=== PATIENT | female | born 1965 | race Caucasian/White ===

== ENCOUNTER 2017-08-09 10:12 | Inpatient (IN) | payer MEDICAID ==
[2017-08-09] MEDS ORDERED: Ketorolac 30 MG/ML SDV IM ONE (10:22)
--- NOTE | 2017-08-09 10:27 | EDM.PDOC ---
ED HPI GENERAL MEDICAL PROBLEM - General Chief Complaint: Lower Extremity Injury/Pain Stated Complaint: LEG PAIN Time Seen by Provider: 08/09/17 10:15 Source of Information: Reports: Patient History Limitations: Reports: No Limitations - History of Present Illness INITIAL COMMENTS - FREE TEXT/NARRATIVE: Corrina Moya is a 51 yr old w female recently located to [place] from [place] who has a PMH of chronic R hip pain. Pain seems to have escalated in the past 2 days. Pain seems worse this am, with ambulation and weight bearing. She arrrived at [facility] ED by cab. She takes Ibuprofen for pain management. Breath smelled of ETOH, and she did admit to consumption of 1 beer earlier this am. She has established at [facility], and has been receiving evaluation of her cardiac and pulmonary status. She has a daughter and grandchildren in the [place] area. - Related Data Allergies Allergy/AdvReac Type Severity Reaction Status Date / Time codeine Allergy Burning Verified 08/09/17 10:47 Home Meds: Home Meds . [Unable to Verify Home Med List] 04/24/17 [History] Past Medical History Cardiovascular History: Reports: CAD, High Cholesterol, Hypertension, PVD, Stents (R fem-pop) Respiratory History: Reports: Asthma, COPD Gastrointestinal History: Reports: Other (See Below) (? adhesions) Genitourinary History: Reports: None Musculoskeletal History: Reports: Other (See Below) (DJD R hip) Psychiatric History: Reports: Anxiety, Depression, Emotional Problems Endocrine/Metabolic History: Reports: None - Past Surgical History Cardiovascular Surgical History: Reports: Vascular Surgery Social & Family History - Tobacco Use Smoking Status *Q: Current Every Day Smoker Years of Tobacco use: 30 Packs/Tins Daily: 0.2 - Recreational Drug Use Recreational Drug Use: No Review of Systems - Review of Systems Review Of Systems: See Below Constitutional: Reports: No Symptoms Eyes: Reports: No Symptoms Ears: Reports: No Symptoms Nose: Reports: No Symptoms Mouth/Throat: Reports: No Symptoms Respiratory: Reports: Shortness of Breath, Cough Cardiovascular: Reports: No Symptoms GI/Abdominal: Reports: No Symptoms Genitourinary: Reports: No Symptoms Musculoskeletal: Reports: Joint Pain (R hip) Skin: Reports: Bruising Neurological: Reports: Dizziness, Difficulty Walking, Weakness Psychiatric: Reports: Depression, Mood Lability, Anxiety ED EXAM, GENERAL - Physical Exam Exam: See Below Exam Limited By: No Limitations General Appearance: Alert, WD/WN, Anxious, Mild Distress Eye Exam: Bilateral Eye: EOMI, Normal Inspection, PERRL Ears: Normal External Exam Nose: Normal Inspection Throat/Mouth: Normal Lips, Normal Oropharynx, Normal Voice Head: Normocephalic Neck: Normal Inspection, Supple, Non-Tender Respiratory/Chest: Decreased Breath Sounds, Prolonged Expiration Cardiovascular: Regular Rate, Rhythm, No Edema, No Murmur GI/Abdominal: Normal Bowel Sounds, Soft, Non-Tender, No Organomegaly, No Distention, No Mass (Female) Exam: Deferred Rectal (Female) Exam: Deferred Back Exam: Normal Inspection Extremities: Normal Inspection, Limited Range of Motion (R hip) Neurological: Alert, Oriented, CN II-XII Intact, No Motor/Sensory Deficits Psychiatric: Normal Affect, Anxious Skin Exam: Warm, Dry, Intact Lymphatic: No Adenopathy Course - Vital Signs Text/Narrative:: Dr Eisenberg will consult with Ms Moya regarding R hip issues. She will be admitted for pain management, hyponatremia, ETOH detoxification, and receive consults for OT and PT. Hospitalist was notified. - Orders/Labs/Meds Orders: Active Orders 24 hr Category Date Time Status UA W/MICROSCOPIC [URIN] Stat Lab 08/09/17 10:47 Ordered Labs: Laboratory Tests 08/09/17 08/09/17 08/09/17 Range/Units 10:47 11:10 11:10 WBC 7.7 (4.5-12.0) X10-3/uL RBC 3.49 (3.23-5.20) x10(6)uL Hgb 12.5 (11.5-15.5) g/dL Hct 35.0 (30.0-51.3) % MCV 100.4 H (80-96) fL MCH 35.7 H (27.7-33.6) pg MCHC 35.6 H (32.2-35.4) g/dL RDW 12.1 (11.5-15.5) % Plt Count 341 (125-369) X10(3)uL MPV 8.1 (7.4-10.4) fL Neut % (Auto) 66.3 (46-82) % Lymph % (Auto) 22.5 (13-37) % [place] % (Auto) 8.2 (4-12) % Eos % (Auto) 3 (1.0-5.0) % Baso % (Auto) 1 (0-2) % Neut # (Auto) 5.2 (1.6-8.3) # Lymph # (Auto) 1.7 (0.6-5.0) # [place] # (Auto) 0.6 (0.0-1.3) # Eos # (Auto) 0.2 (0.0-0.8) # Baso # (Auto) 0.0 (0.0-0.2) # PT 10.2 (8.7-11.1) INR 1.01 (0.89-1.13) Sodium (135-145) mmol/L Potassium (3.5-5.3) mmol/L Chloride (100-110) mmol/L Carbon Dioxide (21-32) mmol/L BUN (7-18) mg/dL Creatinine (0.55-1.02) mg/dL Est Cr Clr Drug Dosing Estimated GFR (MDRD) (>60) BUN/Creatinine Ratio (9-20) Glucose (80-116) mg/dL Calcium (8.6-10.2) mg/dL Total Bilirubin (0.1-1.3) mg/dL AST (5-25) IU/L ALT (12-36) U/L Alkaline Phosphatase (56-112) IU/L Total Protein (6.0-8.0) g/dL Albumin (3.5-5.2) g/dL Globulin g/dL Albumin/Globulin Ratio Urine Color Yellow (YELLOW) Urine Appearance Slightly cloudy (CLEAR) Urine pH 5.0 (5.0-6.5) Ur Specific [place] 1.010 (1.010-1.025) Urine Protein Negative (NEGATIVE) mg/dL Urine Glucose (UA) Normal (NEGATIVE) mg/dL Urine Ketones Negative (NEGATIVE) mg/dL Urine Occult Blood Negative (NEGATIVE) Urine Nitrite Negative (NEGATIVE) Urine Bilirubin Negative (NEGATIVE) Urine Urobilinogen Normal (NEGATIVE) mg/dL Ur Leukocyte Esterase Negative (NEGATIVE) Urine WBC 5-10 (0) Ur Squamous Epith Cells Few H (NS,R,O) Urine Bacteria Many H (NS) Ethyl Alcohol (<0.03) % 08/09/17 08/09/17 Range/Units 11:10 11:10 WBC (4.5-12.0) X10-3/uL RBC (3.23-5.20) x10(6)uL Hgb (11.5-15.5) g/dL Hct (30.0-51.3) % MCV (80-96) fL MCH (27.7-33.6) pg MCHC (32.2-35.4) g/dL RDW (11.5-15.5) % Plt Count (125-369) X10(3)uL MPV (7.4-10.4) fL Neut % (Auto) (46-82) % Lymph % (Auto) (13-37) % [place] % (Auto) (4-12) % Eos % (Auto) (1.0-5.0) % Baso % (Auto) (0-2) % Neut # (Auto) (1.6-8.3) # Lymph # (Auto) (0.6-5.0) # [place] # (Auto) (0.0-1.3) # Eos # (Auto) (0.0-0.8) # Baso # (Auto) (0.0-0.2) # PT (8.7-11.1) INR (0.89-1.13) Sodium 129 L (135-145) mmol/L Potassium 3.7 (3.5-5.3) mmol/L Chloride 94 L (100-110) mmol/L Carbon Dioxide 23 (21-32) mmol/L BUN 14 (7-18) mg/dL Creatinine 0.8 (0.55-1.02) mg/dL Est Cr Clr Drug Dosing TNP Estimated GFR (MDRD) > 60 (>60) BUN/Creatinine Ratio 17.5 (9-20) Glucose 95 (80-116) mg/dL Calcium 8.9 (8.6-10.2) mg/dL Total Bilirubin 0.3 (0.1-1.3) mg/dL AST 25 (5-25) IU/L ALT 26 (12-36) U/L Alkaline Phosphatase 89 (56-112) IU/L Total Protein 7.6 (6.0-8.0) g/dL Albumin 3.6 (3.5-5.2) g/dL Globulin 4.0 g/dL Albumin/Globulin Ratio 0.9 Urine Color (YELLOW) Urine Appearance (CLEAR) Urine pH (5.0-6.5) Ur Specific [place] (1.010-1.025) Urine Protein (NEGATIVE) mg/dL Urine Glucose (UA) (NEGATIVE) mg/dL Urine Ketones (NEGATIVE) mg/dL Urine Occult Blood (NEGATIVE) Urine Nitrite (NEGATIVE) Urine Bilirubin (NEGATIVE) Urine Urobilinogen (NEGATIVE) mg/dL Ur Leukocyte Esterase (NEGATIVE) Urine WBC (0) Ur Squamous Epith Cells (NS,R,O) Urine Bacteria (NS) Ethyl Alcohol 0.10 H (<0.03) % Meds: Medications Discontinued Medications Generic Name Dose Route Start Last Admin Trade Name Freq PRN Reason Stop Dose Admin Ketorolac Tromethamine 30 mg 08/09/17 10:22 08/09/17 10:34 Toradol IM 08/09/17 10:23 30 mg ONETIME ONE Administration Departure - Departure Time of Disposition: 12:15 Disposition: Admitted As Inpatient 66 Condition: Poor Clinical Impression: Hyponatremia Painful hip Qualifiers: Laterality: right Qualified Code(s): M25.551 - Pain in right hip Alcoholic intoxication, chronic Qualifiers: Complication of substance-induced condition: uncomplicated Qualified Code(s): F10.120 - Alcohol abuse with intoxication, uncomplicated - Discharge Information Referrals: Shahida Davila OB NURSE [Primary Care Provider] - Forms: ED Department Discharge - Problem List & Annotations (1) Painful hip SNOMED Code(s): 69583316 Code(s): M25.559 - PAIN IN UNSPECIFIED HIP Status: Acute Current Visit: Yes Annotation/Comment:: Dr Eisenberg to consult regarding R hip pain and advanced DJD Qualifiers: Laterality: right Qualified Code(s): M25.551 - Pain in right hip (2) Alcoholic intoxication, chronic SNOMED Code(s): 311626735, 229060765 Code(s): F10.129 - ALCOHOL ABUSE WITH INTOXICATION, UNSPECIFIED Status: Acute Current Visit: Yes Annotation/Comment:: ETOH detoxification and monitor for Withdrawl Qualifiers: Complication of substance-induced condition: uncomplicated Qualified Code(s ): F10.120 - Alcohol abuse with intoxication, uncomplicated (3) Hyponatremia SNOMED Code(s): 09930104 Code(s): E87.1 - HYPO-OSMOLALITY AND HYPONATREMIA Status: Acute Current Visit: Yes Annotation/Comment:: Dietary replacement. - Problem List Review Problem List Initiated/Reviewed/Updated: Yes - My Orders Last 24 Hours: My Active Orders 08/09/17 10:47 UA W/MICROSCOPIC [URIN] Stat - Assessment/Plan Last 24 Hours: My Active Orders 08/09/17 10:47 UA W/MICROSCOPIC [URIN] Stat Plan: Admit to InPt, discussed with Hospitalist.
--- NOTE | 2017-08-09 11:35 | CR ---
INDICATION: Painful right hip. PELVIS WITH RIGHT HIP: Frontal view of the pelvis with lateral of the right hip was obtained 08/09/[address] scan which included the pelvis from 07/24/2017, again revealing evidence of severe osteoarthritis with virtually no remaining joint space at the cranial aspect of the right hip joint. Flattening of the femoral head is noted. Hypertrophic changes, sclerosis, and subchondral cystic changes are seen at the right hip joint. There are also degenerative changes of hypertrophic lipping and marked narrowing of the cranial lateral joint space on the left. Disease is moderately less severe than on the right, however. Overall bone density appeared to be normal. An iliac artery stent is noted in place on the right. IMPRESSION: Severe osteoarthritis both hip joints, much more severe on the right than left, however, with more severe deformity and subchondral cystic change on the right. MTDD
--- NOTE | 2017-08-09 11:40 | CR ---
INDICATION: Suspected COPD. CHEST: An AP upright view of the chest, 08/09/2017, was compared with 2016, again revealing the heart to be enlarged. The aorta is tortuous with minimal calcification suggested in the arch. The lungs appear to be somewhat hyperaerated. A definite active infiltrate or effusion was not identified. Dextroconcave scoliosis and degenerative changes are noted in the lower middle thoracic spine. IMPRESSION: 1. No definite acute process. 2. ASHD with cardiomegaly. 3. Scoliosis with DJD spine. 4. Cannot exclude COPD - correlate clinically. MTDD
[2017-08-09] MEDS ORDERED: Acetaminophen/HYDROcodone 325-5 MG Tab PO ONE (13:28)
[2017-08-09] MEDS ORDERED: Nicotine 14 MG/24 Hr Patch TRDERM SCH (18:15)
[2017-08-09] MEDS ORDERED: Acetaminophen/HYDROcodone 325-5 MG Tab PO PRN (18:17)
[2017-08-09] MEDS ORDERED: Ondansetron 4 MG Tab.DIS PO PRN (18:17)
[2017-08-09] MEDS ORDERED: ClonazePAM 0.5 MG Tab PO PRN (18:28)
[2017-08-09] MEDS ORDERED: Albuterol/Ipratropium 3.0-0.5 MG/3 ML Neb Soln INH PRN (18:28)
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
[2017-08-09] MEDS ORDERED: Albuterol 8 GM Inhaler INH PRN (18:54)
[2017-08-09] MEDS: Clopidogrel 75 MG Tab PO SCH (19:07)
[2017-08-09] MEDS: Docusate Sodium 100 MG Cap PO SCH ×2 (19:07→21:33)
[2017-08-09] MEDS: amLODIPine 5 MG Tab PO SCH (19:07)
[2017-08-09] MEDS: Enoxaparin 40 MG/0.4 ML Syringe SUBCUT SCH (19:07)
[2017-08-09] MEDS: Isosorbide Mononitrate 30 MG Tab.ER PO SCH (19:07)
[2017-08-09] MEDS: Acetaminophen/HYDROcodone 325-5 MG Tab PO SCH (19:07)
[2017-08-09] MEDS: Metoprolol Tartrate 50 MG Tab PO SCH (21:33)
[2017-08-09] MEDS: Zolpidem 5 MG Tab PO SCH (21:33)
[2017-08-09] MEDS: FLUTICASONE SALMETEROL IH SCH (21:34)
[2017-08-09] MEDS: Gabapentin 300 MG Cap PO SCH (21:34)
[2017-08-09] MEDS: DULoxetine 20 MG Cap PO SCH (21:56)
[2017-08-10] MEDS: Acetaminophen/HYDROcodone 325-5 MG Tab PO SCH ×4 (00:49→17:26)
[2017-08-10] MEDS: FLUTICASONE SALMETEROL IH SCH ×2 (06:40→20:28)
[2017-08-10] MEDS: Docusate Sodium 100 MG Cap PO SCH ×2 (08:22→20:27)
[2017-08-10] MEDS: DULoxetine 20 MG Cap PO SCH ×2 (08:22→20:27)
[2017-08-10] MEDS: Clopidogrel 75 MG Tab PO SCH (08:23)
[2017-08-10] MEDS: Gabapentin 300 MG Cap PO SCH ×3 (08:24→20:27)
[2017-08-10] MEDS: amLODIPine 5 MG Tab PO SCH (08:24)
[2017-08-10] MEDS: Isosorbide Mononitrate 30 MG Tab.ER PO SCH (08:25)
[2017-08-10] MEDS: Hydrochlorothiazide/Lisinopril 25-20 MG Tab PO SCH (08:25)
[2017-08-10] MEDS: atorvaSTATin 40 MG Tab PO SCH (08:25)
[2017-08-10] MEDS: Magnesium Oxide 400 MG Tab PO SCH (08:26)
[2017-08-10] MEDS: Metoprolol Tartrate 50 MG Tab PO SCH ×2 (08:26→20:27)
[2017-08-10] MEDS: Ciprofloxacin 500 MG Tab PO SCH ×2 (12:58→20:27)
[2017-08-10] MEDS: Nicotine 14 MG/24 Hr Patch TRDERM SCH (17:27)
[2017-08-10] MEDS: Enoxaparin 40 MG/0.4 ML Syringe SUBCUT SCH (17:27)
[2017-08-10] MEDS: Zolpidem 5 MG Tab PO SCH (20:27)
[2017-08-11] MEDS: Acetaminophen/HYDROcodone 325-5 MG Tab PO SCH ×4 (00:13→17:52)
[2017-08-11] MEDS: FLUTICASONE SALMETEROL IH SCH ×2 (07:03→20:32)
[2017-08-11] MEDS: Metoprolol Tartrate 50 MG Tab PO SCH ×2 (08:09→20:31)
[2017-08-11] MEDS: Clopidogrel 75 MG Tab PO SCH (08:09)
[2017-08-11] MEDS: Ciprofloxacin 500 MG Tab PO SCH ×2 (08:09→20:30)
[2017-08-11] MEDS: Docusate Sodium 100 MG Cap PO SCH ×2 (08:10→20:31)
[2017-08-11] MEDS: DULoxetine 20 MG Cap PO SCH ×2 (08:10→20:31)
[2017-08-11] MEDS: amLODIPine 5 MG Tab PO SCH (08:10)
[2017-08-11] MEDS: Isosorbide Mononitrate 30 MG Tab.ER PO SCH (08:10)
[2017-08-11] MEDS: atorvaSTATin 40 MG Tab PO SCH (08:10)
[2017-08-11] MEDS: Gabapentin 300 MG Cap PO SCH ×3 (08:10→20:31)
[2017-08-11] MEDS: Magnesium Oxide 400 MG Tab PO SCH (08:10)
[2017-08-11] MEDS: Hydrochlorothiazide/Lisinopril 25-20 MG Tab PO SCH (08:10)
--- NOTE | 2017-08-11 09:04 | PCM.PN ---
- General Info Date of Service: 08/10/17 Subjective Update: pain under improved control. no bm since admission. started on stool softener on admission. doing much better with ambulation now that pain is under better control. tolerating cipro. ID ecoli susceptible to cipro. nursing without concerns. has remained afebrile. no n/v or headache. no chest pain shortness of breath wheezing abdominal pain and flank pain diaphoresis peripheral numbness or tingling swelling or pain in the calves. Functional Status: Reports: Tolerating Diet, Ambulating, Urinating. Denies: New Symptoms - Patient Data Vitals - Most Recent: Last Vital Signs Temp 97.7 F 08/11/17 08:00 Pulse 68 08/11/17 08:09 Resp 17 08/11/17 08:00 BP 125/87 08/11/17 08:10 Pulse Ox 96 08/11/17 08:00 Weight - Most Recent: 66.497 kg I&O - Last 24 Hours: Intake & Output 08/10/17 08/11/17 08/11/17 22:59 06:59 14:59 Intake Total 300 Balance 300 [place] Results Last 24 Hours: Microbiology 08/09/17 10:47 Urine Culture - Final Urine, Bladder Escherichia Coli Med Orders - Current: Current Medications Hydrocodone Bitart/Acetaminophen ([place] 325-5 Mg) 1 tab PO Q6H [facility] Last Admin: 08/11/17 07:02 Dose: 1 tab Hydrocodone Bitart/Acetaminophen ([place] 325-5 Mg) 1 tab PO Q4H PRN PRN Reason: Pain (moderate 4-6) Last Admin: 08/09/17 21:42 Dose: 1 tab Albuterol (Ventolin Hfa) 0 gm INH Q4H PRN PRN Reason: Shortness of Breath Albuterol/Ipratropium (Duoneb 3.0-0.5 Mg/3 Ml) 3 ml INH QID PRN PRN Reason: wheezing/sob Last Admin: 08/10/17 17:20 Dose: 3 ml Amlodipine Besylate (Norvasc) 5 mg PO DAILY [facility] Last Admin: 08/11/17 08:10 Dose: 5 mg Atorvastatin Calcium (Lipitor) 80 mg PO DAILY [facility] Last Admin: 08/11/17 08:10 Dose: 80 mg Ciprofloxacin (Ciprofloxacin Hcl) 500 mg PO BID@0800,1999 [facility] Last Admin: 08/11/17 08:09 Dose: 500 mg Clonazepam (Klonopin) 0.25 mg PO BID PRN PRN Reason: Anxiety Clopidogrel Bisulfate (Plavix) 75 mg PO DAILY [facility] Last Admin: 08/11/17 08:09 Dose: 75 mg Docusate Sodium (Colace) 100 mg PO BID [facility] Last Admin: 08/11/17 08:10 Dose: 100 mg Duloxetine HCl (Cymbalta) 20 mg PO BID [facility] Last Admin: 08/11/17 08:10 Dose: 20 mg Gabapentin (Neurontin) 300 mg PO TID [facility] Last Admin: 08/11/17 08:10 Dose: 300 mg Lisinopril/HCTZ (Lisinopril-Hctz 20-25 Mg) 1 tab PO DAILY [facility] Last Admin: 08/11/17 08:10 Dose: 1 tab Heparin Sodium (Porcine) (Heparin Sodium) 5,000 units SUBCUT Q8H [facility] Isosorbide Mononitrate (Imdur) 30 mg PO DAILY [facility] Last Admin: 08/11/17 08:10 Dose: 30 mg Levothyroxine Sodium (Levothyroxine) 175 mcg PO ACBREAKFAST [facility] Last Admin: 08/11/17 07:03 Dose: 175 mcg Magnesium Oxide (Magnesium Oxide) 400 mg PO DAILY [facility] Last Admin: 08/11/17 08:10 Dose: 400 mg Medroxyprogesterone Acetate (Provera) 2.5 mg PO DAILY [facility] Last Admin: 08/11/17 08:10 Dose: 2.5 mg Meloxicam (Mobic) 15 mg PO DAILY [facility] Last Admin: 08/11/17 08:10 Dose: 15 mg Metoprolol Tartrate (Lopressor) 50 mg PO BID [facility] Last Admin: 08/11/17 08:09 Dose: 50 mg Nicotine (Habitrol) 14 mg TRDERM DAILY@1800 [facility] Last Admin: 08/10/17 17:27 Dose: 14 mg Non-Formulary Medication (Cholecalciferol (Vitamin D3) [Vitamin D3]) 400 unit PO DAILY [facility] Fluticasone- Salmeterol 232-14 Mcg InhalerOwn Med 1 puff IH BIDRT [facility] Last Admin: 08/11/17 07:03 Dose: 1 puff Ondansetron HCl (Zofran Odt) 4 mg PO Q6H PRN PRN Reason: nausea, able to take PO Zolpidem Tartrate (Ambien) 5 mg PO BEDTIME [facility] Last Admin: 08/10/17 20:27 Dose: 5 mg Discontinued Medications Hydrocodone Bitart/Acetaminophen ([place] 325-5 Mg) 1 tab PO ONETIME ONE Stop: 08/09/17 13:29 Last Admin: 08/09/17 13:36 Dose: 1 tab Enoxaparin Sodium (Lovenox) 40 mg SUBCUT Q24H [facility] Last Admin: 08/10/17 17:27 Dose: 40 mg Ketorolac Tromethamine (Toradol) 30 mg IM ONETIME ONE Stop: 08/09/17 10:23 Last Admin: 08/09/17 10:34 Dose: 30 mg Nicotine (Habitrol) 14 mg TRDERM DAILY [facility] Last Admin: 08/09/17 19:43 Dose: 14 mg - Exam Physical Findings Comments:: General: Alert, Oriented, Cooperative Lungs: Normal Respiratory Effort, improved aeration to bilateral bases Cardiovascular: Regular Rate, Regular Rhythm GI/Abdominal Exam: Normal Bowel Sounds Back Exam: No: CVA Tenderness (R), CVA Tenderness (L) Extremities: Other (pain on ROM of the right hip. tolerating exam but guarded) Skin: Intact, Ecchymosis (scattered, chronically on plavix. ) Neurological: No New Focal Deficit Psy/Mental Status: Normal Affect, Normal Mood. No: Withdrawal Symptoms - Problem List & Annotations (1) Painful hip SNOMED Code(s): 53319227 Code(s): M25.559 - PAIN IN UNSPECIFIED HIP Status: Acute Qualifiers: Laterality: right Qualified Code(s): M25.551 - Pain in right hip (2) Arthritis of right hip SNOMED Code(s): 35771871 Code(s): M16.11 - UNILATERAL PRIMARY OSTEOARTHRITIS, RIGHT HIP Status: Chronic (3) Pain management SNOMED Code(s): 809972838 Code(s): R52 - PAIN, UNSPECIFIED Status: Acute - Problem List Review Problem List Initiated/Reviewed/Updated: Yes - My Orders Last 24 Hours: My Active Orders 08/10/17 09:00 Cholecalciferol (Vitamin D3) [Vitamin D3] 400 unit PO DAILY Hydrochlorothiazide/Lisinopril [Lisinopril-HCTZ 20-25 MG] 1 tab PO DAILY Magnesium Oxide 400 mg PO DAILY Meloxicam [Mobic] 15 mg PO DAILY atorvaSTATin [Lipitor] 80 mg PO DAILY medroxyPROGESTERone [Provera] 2.5 mg PO DAILY 08/10/17 11:30 Ciprofloxacin [Ciprofloxacin HCl] 500 mg PO BID@0800,2000 08/10/17 18:00 Nicotine [Habitrol] 14 mg TRDERM DAILY@1800 08/11/17 08:55 INR,PT,PROTHROMBIN TIME [COAG] Routine PTT,PARTIAL THROMBOPLSTIN TIME [COAG] Routine 08/11/17 08:56 CBC W/O DIFF,HEMOGRAM [HEME] Routine 08/11/17 09:00 Heparin Sodium 5,000 units SUBCUT Q8H - Plan Plan:: Attending current cares. Anticipate discharge within 4 hours on oral pain management, oral antibiotics and follow-up with orthopedic.
--- NOTE | 2017-08-11 09:04 | PCM.PN ---
- General Info Date of Service: 08/11/17 Subjective Update: slept well for the first time in over a week. continues to have aching and pain on ROM to the right hip but feels it is getting under better control. is up with nursing to the bathroom using her wheeled walker, no lightheadedness or dizziness on standing. nursing without concerns for withdrawl s/s. has been very pleasant and cooperative with exams and monitoring. Functional Status: Reports: Tolerating Diet, Ambulating, Urinating - Review of Systems Systems Review Comment:: per hpi - Patient Data Vitals - Most Recent: Last Vital Signs Temp 97.7 F 08/11/17 08:00 Pulse 68 08/11/17 08:09 Resp 17 08/11/17 08:00 BP 125/87 08/11/17 08:10 Pulse Ox 96 08/11/17 08:00 Weight - Most Recent: 66.497 kg I&O - Last 24 Hours: Intake & Output 08/10/17 08/11/17 08/11/17 22:59 06:59 14:59 Intake Total 300 Balance 300 [place] Results Last 24 Hours: Microbiology 08/09/17 10:47 Urine Culture - Final Urine, Bladder Escherichia Coli Med Orders - Current: Current Medications Hydrocodone Bitart/Acetaminophen ([place] 325-5 Mg) 1 tab PO Q6H [facility] Last Admin: 08/11/17 07:02 Dose: 1 tab Hydrocodone Bitart/Acetaminophen ([place] 325-5 Mg) 1 tab PO Q4H PRN PRN Reason: Pain (moderate 4-6) Last Admin: 08/09/17 21:42 Dose: 1 tab Albuterol (Ventolin Hfa) 0 gm INH Q4H PRN PRN Reason: Shortness of Breath Albuterol/Ipratropium (Duoneb 3.0-0.5 Mg/3 Ml) 3 ml INH QID PRN PRN Reason: wheezing/sob Last Admin: 08/10/17 17:20 Dose: 3 ml Amlodipine Besylate (Norvasc) 5 mg PO DAILY [facility] Last Admin: 08/11/17 08:10 Dose: 5 mg Atorvastatin Calcium (Lipitor) 80 mg PO DAILY [facility] Last Admin: 08/11/17 08:10 Dose: 80 mg Ciprofloxacin (Ciprofloxacin Hcl) 500 mg PO BID@0800,1999 [facility] Last Admin: 08/11/17 08:09 Dose: 500 mg Clonazepam (Klonopin) 0.25 mg PO BID PRN PRN Reason: Anxiety Clopidogrel Bisulfate (Plavix) 75 mg PO DAILY [facility] Last Admin: 08/11/17 08:09 Dose: 75 mg Docusate Sodium (Colace) 100 mg PO BID [facility] Last Admin: 08/11/17 08:10 Dose: 100 mg Duloxetine HCl (Cymbalta) 20 mg PO BID [facility] Last Admin: 08/11/17 08:10 Dose: 20 mg Gabapentin (Neurontin) 300 mg PO TID [facility] Last Admin: 08/11/17 08:10 Dose: 300 mg Lisinopril/HCTZ (Lisinopril-Hctz 20-25 Mg) 1 tab PO DAILY [facility] Last Admin: 08/11/17 08:10 Dose: 1 tab Heparin Sodium (Porcine) (Heparin Sodium) 5,000 units SUBCUT Q8H [facility] Isosorbide Mononitrate (Imdur) 30 mg PO DAILY [facility] Last Admin: 08/11/17 08:10 Dose: 30 mg Levothyroxine Sodium (Levothyroxine) 175 mcg PO ACBREAKFAST [facility] Last Admin: 08/11/17 07:03 Dose: 175 mcg Magnesium Oxide (Magnesium Oxide) 400 mg PO DAILY [facility] Last Admin: 08/11/17 08:10 Dose: 400 mg Medroxyprogesterone Acetate (Provera) 2.5 mg PO DAILY [facility] Last Admin: 08/11/17 08:10 Dose: 2.5 mg Meloxicam (Mobic) 15 mg PO DAILY [facility] Last Admin: 08/11/17 08:10 Dose: 15 mg Metoprolol Tartrate (Lopressor) 50 mg PO BID [facility] Last Admin: 08/11/17 08:09 Dose: 50 mg Nicotine (Habitrol) 14 mg TRDERM DAILY@1800 [facility] Last Admin: 08/10/17 17:27 Dose: 14 mg Non-Formulary Medication (Cholecalciferol (Vitamin D3) [Vitamin D3]) 400 unit PO DAILY [facility] Fluticasone- Salmeterol 232-14 Mcg InhalerOwn Med 1 puff IH BIDRT [facility] Last Admin: 08/11/17 07:03 Dose: 1 puff Ondansetron HCl (Zofran Odt) 4 mg PO Q6H PRN PRN Reason: nausea, able to take PO Zolpidem Tartrate (Ambien) 5 mg PO BEDTIME [facility] Last Admin: 08/10/17 20:27 Dose: 5 mg Discontinued Medications Hydrocodone Bitart/Acetaminophen ([place] 325-5 Mg) 1 tab PO ONETIME ONE Stop: 08/09/17 13:29 Last Admin: 08/09/17 13:36 Dose: 1 tab Enoxaparin Sodium (Lovenox) 40 mg SUBCUT Q24H [facility] Last Admin: 08/10/17 17:27 Dose: 40 mg Ketorolac Tromethamine (Toradol) 30 mg IM ONETIME ONE Stop: 08/09/17 10:23 Last Admin: 08/09/17 10:34 Dose: 30 mg Nicotine (Habitrol) 14 mg TRDERM DAILY [facility] Last Admin: 08/09/17 19:43 Dose: 14 mg - Exam General: Alert, Oriented, Cooperative Lungs: Normal Respiratory Effort, Decreased Breath Sounds Cardiovascular: Regular Rate, Regular Rhythm GI/Abdominal Exam: Normal Bowel Sounds Back Exam: No: CVA Tenderness (R), CVA Tenderness (L) Extremities: Other (pain on ROM of the right hip. tolerating exam a bit better. only needed one extra dose of pain medication. ) Skin: Intact, Ecchymosis (scattered, chronically on plavix. ) Neurological: No New Focal Deficit Psy/Mental Status: Normal Affect, Normal Mood. No: Withdrawal Symptoms - Problem List & Annotations (1) Painful hip SNOMED Code(s): 24457076 Code(s): M25.559 - PAIN IN UNSPECIFIED HIP Status: Acute Qualifiers: Laterality: right Qualified Code(s): M25.551 - Pain in right hip (2) Arthritis of right hip SNOMED Code(s): 80671271 Code(s): M16.11 - UNILATERAL PRIMARY OSTEOARTHRITIS, RIGHT HIP Status: Chronic (3) Cystitis SNOMED Code(s): 08433811 Code(s): N30.90 - CYSTITIS, UNSPECIFIED WITHOUT HEMATURIA Status: Acute (4) Pain management SNOMED Code(s): 275556308 Code(s): R52 - PAIN, UNSPECIFIED Status: Acute (5) Hyponatremia SNOMED Code(s): 70732166 Code(s): E87.1 - HYPO-OSMOLALITY AND HYPONATREMIA Status: Resolved Annotation/Comment:: Dietary replacement. - Problem List Review Problem List Initiated/Reviewed/Updated: Yes - My Orders Last 24 Hours: My Active Orders 08/10/17 09:00 Cholecalciferol (Vitamin D3) [Vitamin D3] 400 unit PO DAILY Hydrochlorothiazide/Lisinopril [Lisinopril-HCTZ 20-25 MG] 1 tab PO DAILY Magnesium Oxide 400 mg PO DAILY Meloxicam [Mobic] 15 mg PO DAILY atorvaSTATin [Lipitor] 80 mg PO DAILY medroxyPROGESTERone [Provera] 2.5 mg PO DAILY 08/10/17 11:30 Ciprofloxacin [Ciprofloxacin HCl] 500 mg PO BID@0800,199908/10/17 18:00 Nicotine [Habitrol] 14 mg TRDERM DAILY@1800 08/11/17 08:55 INR,PT,PROTHROMBIN TIME [COAG] Routine PTT,PARTIAL THROMBOPLSTIN TIME [COAG] Routine 08/11/17 08:56 CBC W/O DIFF,HEMOGRAM [HEME] Routine 08/11/17 09:00 Heparin Sodium 5,000 units SUBCUT Q8H - Plan Plan:: continue to provide and optimize appropriate pain management while minimizing risk for falls in anticipation for Right NEYDA. plavix held for now with heparin on board. will start cipro for preliminary gram stain and colony counts. all questions answered and she agrees with current plan of care. anticipate discharge in 24-48h.
[2017-08-11] MEDS: Heparin Sodium 5,000 Units/ML Vial SUBCUT SCH ×2 (09:08→17:53)
[2017-08-11] MEDS: Nicotine 14 MG/24 Hr Patch TRDERM SCH (17:52)
[2017-08-11] MEDS: Zolpidem 5 MG Tab PO SCH (22:06)
[2017-08-12] MEDS: Acetaminophen/HYDROcodone 325-5 MG Tab PO SCH ×3 (00:27→12:33)
[2017-08-12] MEDS: Heparin Sodium 5,000 Units/ML Vial SUBCUT SCH ×2 (00:28→08:56)
[2017-08-12] MEDS: FLUTICASONE SALMETEROL IH SCH (06:32)
[2017-08-12] MEDS: Docusate Sodium 100 MG Cap PO SCH (08:54)
[2017-08-12] MEDS: DULoxetine 20 MG Cap PO SCH (08:55)
[2017-08-12] MEDS: Isosorbide Mononitrate 30 MG Tab.ER PO SCH (08:56)
[2017-08-12] MEDS: atorvaSTATin 40 MG Tab PO SCH (08:56)
[2017-08-12] MEDS: Magnesium Oxide 400 MG Tab PO SCH (08:57)
[2017-08-12] MEDS: Metoprolol Tartrate 50 MG Tab PO SCH (08:57)
[2017-08-12] MEDS: Hydrochlorothiazide/Lisinopril 25-20 MG Tab PO SCH (08:57)
[2017-08-12] MEDS: amLODIPine 5 MG Tab PO SCH (08:58)
[2017-08-12] MEDS: Gabapentin 300 MG Cap PO SCH (08:58)
[2017-08-12] MEDS ORDERED: Cholecalciferol (Vitamin D3) 1,000 Unit Tab PO SCH (09:00)
[2017-08-12] MEDS ORDERED: Cyanocobalamin (Vitamin B12) 1,000 MCG Tab PO SCH (09:00)
[2017-08-12] MEDS ORDERED: Magnesium Hydroxide 400 MG/5 ML Susp 30 ML Cup PO PRN (09:07)
[2017-08-12] MEDS: Ciprofloxacin 500 MG Tab PO SCH (10:19)
--- NOTE | 2017-08-12 11:44 | PCM.DCSUM1 ---
Discharge Summary - Hospital Course Brief History: Mrs. Moya presented for increasing intractable right hip pain and unable to weight-bear secondary to severe DJD resulting in deformity of right hip joint reduced range of motion and osteophytosis. - Discharge Data Discharge Date: 08/12/17 Discharge Disposition: Home, Self-Care 01 Condition: Good - Discharge Diagnosis/Problem(s) (1) Arthritis of right hip SNOMED Code(s): 73605610 ICD Code: M16.11 - UNILATERAL PRIMARY OSTEOARTHRITIS, RIGHT HIP Status: Chronic (2) Cystitis SNOMED Code(s): 94711417 ICD Code: N30.90 - CYSTITIS, UNSPECIFIED WITHOUT HEMATURIA Status: Acute (3) Painful hip SNOMED Code(s): 38512026 ICD Code: M25.559 - PAIN IN UNSPECIFIED HIP Status: Acute Qualifiers: Laterality: right Qualified Code(s): M25.551 - Pain in right hip (4) Pain management SNOMED Code(s): 430490349 ICD Code: R52 - PAIN, UNSPECIFIED Status: Acute (5) Hyponatremia SNOMED Code(s): 79346708 ICD Code: E87.1 - HYPO-OSMOLALITY AND HYPONATREMIA Status: Resolved Problem Details: Dietary replacement. (6) Alcoholic intoxication, chronic SNOMED Code(s): 159227724, 059640083 ICD Code: F10.129 - ALCOHOL ABUSE WITH INTOXICATION, UNSPECIFIED Status: Resolved Problem Details: ETOH detoxification and monitor for Withdrawl Qualifiers: Complication of substance-induced condition: uncomplicated Qualified Code(s ): F10.120 - Alcohol abuse with intoxication, uncomplicated - Patient Summary/Data Consults: Consultations 08/09/17 18:17 OT Evaluation and Treatment [CONS] Routine Please Evaluate and Treat. OT Reason for Consult: Other (Type Response) Special Instructions: ADL's, DC planning after R NEYDA This query below is only for informational purposes and is not editable. Admission Diagnosis/Problem: Hip pain PT Evaluation and Treatment [CONS] Routine Please Evaluate and Treat. PT Reason for Consult: Ambulation Special Instructions: prep for R NEYDA then post op This query below is only for informational purposes and is not editable. Admission Diagnosis/Problem: Hip pain Recommended Follow-up Testing/Procedures: Follow-up with Dr. Eisenberg, orthopedics for consultation regarding right total hip arthroscopy with postoperative physical therapy and rehabilitation. Hospital Course: Patient was admitted to medical floor. Her pain management was optimized using oral opioids therapy and resumption of home anti-inflammatory and muscle relaxant. She was temporarily placed on heparin with her Plavix held should the need for acute hip replacement be required if unable to get pain management optimized without increasing her risk for fall. She tolerated this quite well. Plavix restarted prior to discharge. She was found to have cystitis and started on Cipro with urine culture growing Escherichia coli. 3 day course was prescribed. She was discharged home for weightbearing utilizing her wheeled walker, is an elevator to her apartment where she lives alone, otherwise takes a taxi cab should she need to go places. She will rest the next few days and follow-up with orthopedics for consultation regarding right total hip replacement in order to improve ADLs, mobility and pain. She knows to continue the stool softener to prevent opioid-induced constipation. Detailed discussion regarding any alcohol use while taking opioid and other pain medications increases her risk significantly for falls and fractures. Also discussed tobacco cessation for which she agreed she will continue the nicotine patch she is done well with this in house. Also informed her this could setback any surgical procedure she began smoking again as it increases her risk for poor healing. All questions answered follow-up appointment has been made she will also continue to follow-up with Shahida Davila NP at [facility] in [place] for her medical care. - Patient Instructions Activity: As Tolerated, Full Weight Bearing Driving: Do Not Drive Showering/Bathing: May Shower Notify Provider of: Fever, Increased Pain, Swelling and Redness, Nausea and/or Vomiting - Discharge Plan Prescriptions/Med Rec: Acetaminophen/HYDROcodone [[place] 325-5 MG] 1 tab PO Q4H PRN #30 tablet MDD 4 Tabs/24hours PRN Reason: Pain (Moderate 4-6) Acetaminophen/HYDROcodone [[place] 325-5 MG] 1 tab PO Q6H #50 tablet Ciprofloxacin HCl [Cipro] 500 mg PO BID #1 tablet Cyanocobalamin (Vitamin B12) [Vitamin B12] 1,000 mcg PO DAILY #90 tablet Docusate Sodium [Colace] 100 mg PO BID #60 cap Fluticasone/Salmeterol [Fluticasone-Salmeterol 232-14] 1 puff IH BID #1 aer.pow.ba Nicotine [Nicotine Patch] 1 patch TD DAILY #30 patch.td24 Zolpidem [Ambien] 5 mg PO BEDTIME PRN #10 tablet PRN Reason: Short Term INsomnia Home Medications: Home Meds Albuterol Sulfate [Proair Respiclick] 1 puff IH Q4H PRN 08/09/17 [History] Albuterol/Ipratropium [DuoNeb 3.0-0.5 MG/3 ML] 3 ml IH QID 08/09/17 [History] Baclofen 10 mg PO TID 08/09/17 [History] Cholecalciferol (Vitamin D3) [Vitamin D3] 400 unit PO DAILY 08/09/17 [History] ClonazePAM [KlonoPIN] 0.25 mg PO BID PRN 08/09/17 [History] Clopidogrel Bisulfate [Clopidogrel] 75 mg PO DAILY 08/09/17 [History] DULoxetine [Cymbalta] 20 mg PO BID 08/09/17 [History] Estradiol 0.5 mg PO DAILY 08/09/17 [History] Gabapentin [Neurontin] 300 mg PO TID 08/09/17 [History] Isosorbide Mononitrate [Imdur] 30 mg PO DAILY 08/09/17 [History] Levothyroxine 175 mcg PO DAILY 08/09/17 [History] Lisinopril/Hydrochlorothiazide [Lisinopril-Hctz 20-25 mg Tab] 1 tab PO DAILY 10/21 [History] Magnesium Oxide 400 mg PO DAILY 08/09/17 [History] Meloxicam 15 mg PO DAILY 08/09/17 [History] Metoprolol Tartrate 50 mg PO BID 08/09/17 [History] Multivitamin with Iron [Multivitamins with Iron] 1 tab PO DAILY 08/09/17 [ History] Naphazo HCl/HPM/PS 80/Zn Sulf [Clear Eyes Complete Eye Drops] 1 drop EYEBOTH TID PRN 08/09/17 [History] amLODIPine Besylate [Amlodipine Besylate] 5 mg PO DAILY 08/09/17 [History] atorvaSTATin Calcium [Atorvastatin Calcium] 80 mg PO DAILY 08/09/17 [History] medroxyPROGESTERone [Provera] 2.5 mg PO DAILY 08/09/17 [History] Acetaminophen/HYDROcodone [[place] 325-5 MG] 1 tab PO Q4H PRN #30 tablet MDD 4 Tabs/24hours 08/12/17 [Rx] Acetaminophen/HYDROcodone [[place] 325-5 MG] 1 tab PO Q6H #50 tablet 08/12/17 [Rx] Ciprofloxacin HCl [Cipro] 500 mg PO BID #1 tablet 08/12/17 [Rx] Cyanocobalamin (Vitamin B12) [Vitamin B12] 1,000 mcg PO DAILY #90 tablet [Rx] Docusate Sodium [Colace] 100 mg PO BID #60 cap 08/12/17 [Rx] Fluticasone/Salmeterol [Fluticasone-Salmeterol 232-14] 1 puff IH BID #1 aer.pow.ba 08/12/17 [Rx] Nicotine [Nicotine Patch] 1 patch TD DAILY #30 patch.td24 08/12/17 [Rx] Zolpidem [Ambien] 5 mg PO BEDTIME PRN #10 tablet 08/12/17 [Rx] Patient Handouts: Hip Pain, Fall Prevention in Hospitals, Adult, Venous Thromboembolism Prevention Referrals: Shahida Davila NP [Primary Care Provider] - Naga Eisenberg MD [Ordering Only Provider] - (appt to see ortho here at [facility] on Saturday08/16/2017. ) - Discharge Summary/Plan Comment DC Time >30 min.: Yes - General Info Date of Service: 08/12/17 Functional Status: Reports: Pain Controlled, Tolerating Diet, Ambulating, Urinating - Review of Systems General: Reports: No Symptoms HEENT: Reports: No Symptoms Pulmonary: Reports: No Symptoms Cardiovascular: Reports: No Symptoms Gastrointestinal: Reports: No Symptoms Genitourinary: Reports: No Symptoms Musculoskeletal: Reports: Joint Pain (right hip) Skin: Reports: Bruising Neurological: Reports: Difficulty Walking, Gait Disturbance Psychiatric: Reports: No Symptoms - Patient Data Vitals - Most Recent: Last Vital Signs Temp 98.0 F 08/12/17 07:40 Pulse 73 08/12/17 08:57 Resp 20 08/12/17 07:40 BP 114/87 08/12/17 08:58 Pulse Ox 94 L 08/12/17 07:40 Weight - Most Recent: 66.497 kg I&O - Last 24 hours: Intake & Output 08/11/17 08/12/17 08/12/17 22:59 06:59 14:59 Intake Total 200 Balance 200 Imaging Impressions - Last 24 hrs: right hip xray on admission. Lab Results - Last 24 hrs: Laboratory Tests 08/09/17 08/09/17 08/09/17 Range/Units 10:47 11:10 11:10 WBC 7.7 (4.5-12.0) X10-3/uL RBC 3.49 (3.23-5.20) x10(6)uL Hgb 12.5 (11.5-15.5) g/dL Hct 35.0 (30.0-51.3) % MCV 100.4 H (80-96) fL MCH 35.7 H (27.7-33.6) pg MCHC 35.6 H (32.2-35.4) g/dL RDW 12.1 (11.5-15.5) % Plt Count 341 (125-369) X10(3)uL MPV 8.1 (7.4-10.4) fL Neut % (Auto) 66.3 (46-82) % Lymph % (Auto) 22.5 (13-37) % [place] % (Auto) 8.2 (4-12) % Eos % (Auto) 3 (1.0-5.0) % Baso % (Auto) 1 (0-2) % Neut # (Auto) 5.2 (1.6-8.3) # Lymph # (Auto) 1.7 (0.6-5.0) # [place] # (Auto) 0.6 (0.0-1.3) # Eos # (Auto) 0.2 (0.0-0.8) # Baso # (Auto) 0.0 (0.0-0.2) # PT 10.2 (8.7-11.1) INR 1.01 (0.89-1.13) APTT (24.4-33.2) SECONDS Sodium (135-145) mmol/L Potassium (3.5-5.3) mmol/L Chloride (100-110) mmol/L Carbon Dioxide (21-32) mmol/L BUN (7-18) mg/dL Creatinine (0.55-1.02) mg/dL Est Cr Clr Drug Dosing Estimated GFR (MDRD) (>60) BUN/Creatinine Ratio (9-20) Glucose (80-116) mg/dL Calcium (8.6-10.2) mg/dL Phosphorus (2.6-4.6) mg/dL Magnesium (1.8-2.5) mg/dL Total Bilirubin (0.1-1.3) mg/dL AST (5-25) IU/L ALT (12-36) U/L Alkaline Phosphatase (56-112) IU/L Total Protein (6.0-8.0) g/dL Albumin (3.5-5.2) g/dL Globulin g/dL Albumin/Globulin Ratio Urine Color Yellow (YELLOW) Urine Appearance Slightly cloudy (CLEAR) Urine pH 5.0 (5.0-6.5) Ur Specific Mathias 1.010 (1.010-1.025) Urine Protein Negative (NEGATIVE) mg/dL Urine Glucose (UA) Normal (NEGATIVE) mg/dL Urine Ketones Negative (NEGATIVE) mg/dL Urine Occult Blood Negative (NEGATIVE) Urine Nitrite Negative (NEGATIVE) Urine Bilirubin Negative (NEGATIVE) Urine Urobilinogen Normal (NEGATIVE) mg/dL Ur Leukocyte Esterase Negative (NEGATIVE) Urine WBC 5-10 (0) Ur Squamous Epith Cells Few H (NS,R,O) Urine Bacteria Many H (NS) Ethyl Alcohol (<0.03) % 08/09/17 08/09/17 08/10/17 Range/Units 11:10 11:10 06:30 WBC (4.5-12.0) X10-3/uL RBC (3.23-5.20) x10(6)uL Hgb (11.5-15.5) g/dL Hct (30.0-51.3) % MCV (80-96) fL MCH (27.7-33.6) pg MCHC (32.2-35.4) g/dL RDW (11.5-15.5) % Plt Count (125-369) X10(3)uL MPV (7.4-10.4) fL Neut % (Auto) (46-82) % Lymph % (Auto) (13-37) % [place] % (Auto) (4-12) % Eos % (Auto) (1.0-5.0) % Baso % (Auto) (0-2) % Neut # (Auto) (1.6-8.3) # Lymph # (Auto) (0.6-5.0) # [place] # (Auto) (0.0-1.3) # Eos # (Auto) (0.0-0.8) # Baso # (Auto) (0.0-0.2) # PT (8.7-11.1) INR (0.89-1.13) APTT (24.4-33.2) SECONDS Sodium 129 L 134 L (135-145) mmol/L Potassium 3.7 4.4 (3.5-5.3) mmol/L Chloride 94 L 101 D (100-110) mmol/L Carbon Dioxide 23 27 (21-32) mmol/L BUN 14 10 (7-18) mg/dL Creatinine 0.8 0.7 (0.55-1.02) mg/dL Est Cr Clr Drug Dosing TNP 78.65 Estimated GFR (MDRD) > 60 > 60 (>60) BUN/Creatinine Ratio 17.5 14.3 (9-20) Glucose 95 92 (80-116) mg/dL Calcium 8.9 8.8 (8.6-10.2) mg/dL Phosphorus 2.8 (2.6-4.6) mg/dL Magnesium 1.7 L (1.8-2.5) mg/dL Total Bilirubin 0.3 (0.1-1.3) mg/dL AST 25 (5-25) IU/L ALT 26 (12-36) U/L Alkaline Phosphatase 89 (56-112) IU/L Total Protein 7.6 (6.0-8.0) g/dL Albumin 3.6 (3.5-5.2) g/dL Globulin 4.0 g/dL Albumin/Globulin Ratio 0.9 Urine Color (YELLOW) Urine Appearance (CLEAR) Urine pH (5.0-6.5) Ur Specific Mathias (1.010-1.025) Urine Protein (NEGATIVE) mg/dL Urine Glucose (UA) (NEGATIVE) mg/dL Urine Ketones (NEGATIVE) mg/dL Urine Occult Blood (NEGATIVE) Urine Nitrite (NEGATIVE) Urine Bilirubin (NEGATIVE) Urine Urobilinogen (NEGATIVE) mg/dL Ur Leukocyte Esterase (NEGATIVE) Urine WBC (0) Ur Squamous Epith Cells (NS,R,O) Urine Bacteria (NS) Ethyl Alcohol 0.10 H (<0.03) % 08/11/17 08/11/17 Range/Units 10:15 10:15 WBC 7.1 (4.5-12.0) X10-3/uL RBC 3.74 (3.23-5.20) x10(6)uL Hgb 13.1 (11.5-15.5) g/dL Hct 37.8 (30.0-51.3) % MCV 101.1 H (80-96) fL MCH 35.0 H (27.7-33.6) pg MCHC 34.6 (32.2-35.4) g/dL RDW 12.1 (11.5-15.5) % Plt Count 356 (125-369) X10(3)uL MPV (7.4-10.4) fL Neut % (Auto) (46-82) % Lymph % (Auto) (13-37) % [place] % (Auto) (4-12) % Eos % (Auto) (1.0-5.0) % Baso % (Auto) (0-2) % Neut # (Auto) (1.6-8.3) # Lymph # (Auto) (0.6-5.0) # [place] # (Auto) (0.0-1.3) # Eos # (Auto) (0.0-0.8) # Baso # (Auto) (0.0-0.2) # PT 9.9 (8.7-11.1) INR 0.98 (0.89-1.13) APTT 24.2 L (24.4-33.2) SECONDS Sodium (135-145) mmol/L Potassium (3.5-5.3) mmol/L Chloride (100-110) mmol/L Carbon Dioxide (21-32) mmol/L BUN (7-18) mg/dL Creatinine (0.55-1.02) mg/dL Est Cr Clr Drug Dosing Estimated GFR (MDRD) (>60) BUN/Creatinine Ratio (9-20) Glucose (80-116) mg/dL Calcium (8.6-10.2) mg/dL Phosphorus (2.6-4.6) mg/dL Magnesium (1.8-2.5) mg/dL Total Bilirubin (0.1-1.3) mg/dL AST (5-25) IU/L ALT (12-36) U/L Alkaline Phosphatase (56-112) IU/L Total Protein (6.0-8.0) g/dL Albumin (3.5-5.2) g/dL Globulin g/dL Albumin/Globulin Ratio Urine Color (YELLOW) Urine Appearance (CLEAR) Urine pH (5.0-6.5) Ur Specific Mathias (1.010-1.025) Urine Protein (NEGATIVE) mg/dL Urine Glucose (UA) (NEGATIVE) mg/dL Urine Ketones (NEGATIVE) mg/dL Urine Occult Blood (NEGATIVE) Urine Nitrite (NEGATIVE) Urine Bilirubin (NEGATIVE) Urine Urobilinogen (NEGATIVE) mg/dL Ur Leukocyte Esterase (NEGATIVE) Urine WBC (0) Ur Squamous Epith Cells (NS,R,O) Urine Bacteria (NS) Ethyl Alcohol (<0.03) % [facility] Results - Last 24 hrs: Microbiology 08/09/17 10:47 Urine Culture - Final Urine, Bladder Escherichia Coli Med Orders - Current: Current Medications Hydrocodone Bitart/Acetaminophen ([place] 325-5 Mg) 1 tab PO Q6H [facility] Last Admin: 08/12/17 06:31 Dose: 1 tab Hydrocodone Bitart/Acetaminophen ([place] 325-5 Mg) 1 tab PO Q4H PRN PRN Reason: Pain (moderate 4-6) Last Admin: 08/09/17 21:42 Dose: 1 tab Albuterol (Ventolin Hfa) 0 gm INH Q4H PRN PRN Reason: Shortness of Breath Albuterol/Ipratropium (Duoneb 3.0-0.5 Mg/3 Ml) 3 ml INH QID PRN PRN Reason: wheezing/sob Last Admin: 08/10/17 17:20 Dose: 3 ml Amlodipine Besylate (Norvasc) 5 mg PO DAILY [facility] Last Admin: 08/12/17 08:58 Dose: 5 mg Atorvastatin Calcium (Lipitor) 80 mg PO DAILY [facility] Last Admin: 08/12/17 08:56 Dose: 80 mg Cholecalciferol (Vitamin D3) 1,000 units PO DAILY [facility] Last Admin: 08/12/17 10:19 Dose: 1,000 units Ciprofloxacin (Ciprofloxacin Hcl) 500 mg PO BID@0800,2000 [facility] Stop: 08/12/17 20:01 Last Admin: 08/12/17 10:19 Dose: 500 mg Clonazepam (Klonopin) 0.25 mg PO BID PRN PRN Reason: Anxiety Clopidogrel Bisulfate (Plavix) 75 mg PO DAILY [facility] Last Admin: 08/11/17 08:09 Dose: 75 mg Cyanocobalamin (Vitamin B12) 1,000 mcg PO DAILY [facility] Last Admin: 08/12/17 08:58 Dose: 1,000 mcg Docusate Sodium (Colace) 100 mg PO BID [facility] Last Admin: 08/12/17 08:54 Dose: 100 mg Duloxetine HCl (Cymbalta) 20 mg PO BID [facility] Last Admin: 08/12/17 08:55 Dose: 20 mg Gabapentin (Neurontin) 300 mg PO TID [facility] Last Admin: 08/12/17 08:58 Dose: 300 mg Lisinopril/HCTZ (Lisinopril-Hctz 20-25 Mg) 1 tab PO DAILY [facility] Last Admin: 08/12/17 08:57 Dose: 1 tab Heparin Sodium (Porcine) (Heparin Sodium) 5,000 units SUBCUT Q8H [facility] Last Admin: 08/12/17 08:56 Dose: 5,000 units Isosorbide Mononitrate (Imdur) 30 mg PO DAILY [facility] Last Admin: 08/12/17 08:56 Dose: 30 mg Levothyroxine Sodium (Levothyroxine) 175 mcg PO ACBREAKFAST [facility] Last Admin: 08/12/17 06:32 Dose: 175 mcg Magnesium Hydroxide (Milk Of Magnesia) 30 ml PO DAILY PRN PRN Reason: Constipation Last Admin: 08/12/17 10:22 Dose: 30 ml Magnesium Oxide (Magnesium Oxide) 400 mg PO DAILY [facility] Last Admin: 08/12/17 08:57 Dose: 400 mg Medroxyprogesterone Acetate (Provera) 2.5 mg PO DAILY [facility] Last Admin: 08/12/17 08:58 Dose: 2.5 mg Meloxicam (Mobic) 15 mg PO DAILY [facility] Last Admin: 08/12/17 08:57 Dose: 15 mg Metoprolol Tartrate (Lopressor) 50 mg PO BID [facility] Last Admin: 08/12/17 08:57 Dose: 50 mg Nicotine (Habitrol) 14 mg TRDERM DAILY@1800 [facility] Last Admin: 08/11/17 17:52 Dose: 14 mg Fluticasone- Salmeterol [id number] Mcg InhalerOwn Med 1 puff IH BIDRT [facility] Last Admin: 08/12/17 06:32 Dose: 1 puff Ondansetron HCl (Zofran Odt) 4 mg PO Q6H PRN PRN Reason: nausea, able to take PO Zolpidem Tartrate (Ambien) 5 mg PO BEDTIME [facility] Last Admin: 08/11/17 22:06 Dose: 5 mg Discontinued Medications Hydrocodone Bitart/Acetaminophen ([place] 325-5 Mg) 1 tab PO ONETIME ONE Stop: 08/09/17 13:29 Last Admin: 08/09/17 13:36 Dose: 1 tab Enoxaparin Sodium (Lovenox) 40 mg SUBCUT Q24H [facility] Last Admin: 08/10/17 17:27 Dose: 40 mg Ketorolac Tromethamine (Toradol) 30 mg IM ONETIME ONE Stop: 08/09/17 10:23 Last Admin: 08/09/17 10:34 Dose: 30 mg Nicotine (Habitrol) 14 mg TRDERM DAILY [facility] Last Admin: 08/09/17 19:43 Dose: 14 mg - Exam Physical Findings Comments:: General: Alert, Oriented, Cooperative Lungs: Normal Respiratory Effort, improved aeration to bilateral bases Cardiovascular: Regular Rate, Regular Rhythm GI/Abdominal Exam: Normal Bowel Sounds Back Exam: No: CVA Tenderness (R), CVA Tenderness (L) Extremities: Other (limited range of motion on external rotation of the right hip. tolerating exam and less guarded) Skin: Intact, Ecchymosis (scattered, chronically on plavix. ) Neurological: No New Focal Deficit Psy/Mental Status: Normal Affect, Normal Mood. No: Withdrawal Symptoms
== END 2017-08-12 13:45 | disposition home or self-care (01) | DRG 554 ==
LOC: FB.ED 10:12 → FB.MS 12:18
PROVIDERS: ADMIT Family Medicine; ATTEND Family Medicine
DX: M16.11 Unilateral primary osteoarthritis, right hip (principal); E87.1 Hypo-osmolality and hyponatremia; G89.29 Other chronic pain; I10 Essential (primary) hypertension; F44.9 Dissociative and conversion disorder, unspecified; F10.120 Alcohol abuse with intoxication, uncomplicated; F17.210 Nicotine dependence, cigarettes, uncomplicated; E78.00 Pure hypercholesterolemia, unspecified; I73.9 Peripheral vascular disease, unspecified; F41.9 Anxiety disorder, unspecified; F32.9 Major depressive disorder, single episode, unspecified; Z88.5 Allergy status to narcotic agent; Y90.0 Blood alcohol level of less than 20 mg/100 ml; N30.90 Cystitis, unspecified without hematuria; B96.20 Unspecified Escherichia coli [E. coli] as the cause of diseases classified elsewhere
CPT/HCPCS: 36415; 71045; 73501-RT; 80048; 80053; 81001; 83735; 84100; 85025; 85027; 85610; 85730; 87086; 87088; 87186; 94640; 96372; 97165-GO; 99283; A9270-GY; G0480; J1644; J1650; J1885; J7620

== ENCOUNTER 2017-09-09 02:53 | Emergency (ER) | payer MEDICAID ==
[2017-09-09] MEDS ORDERED: Ketorolac 60 MG/2 ML SDV IM ONE (03:16)
--- NOTE | 2017-09-09 03:21 | EDM.PDOC ---
ED HPI GENERAL MEDICAL PROBLEM - General Chief Complaint: Lower Extremity Injury/Pain Stated Complaint: RT HIP PAIN Time Seen by Provider: 09/09/17 03:17 Source of Information: Reports: Patient History Limitations: Reports: No Limitations - History of Present Illness INITIAL COMMENTS - FREE TEXT/NARRATIVE: c/o R hip pain pt took ibuprofen 200 mg x 2 and Tyl with codeine x 2 has chronic pain says it is bone on bone has seen Dr Eisenberg from ortho will have THR when cleared by PCP Shahida Chen has h/o vascular disease, renal and hepatic function wnl hip hurts at rest - Related Data Allergies Allergy/AdvReac Type Severity Reaction Status Date / Time No Known Allergies Allergy Verified 09/09/17 03:09 Home Meds: Home Meds Albuterol Sulfate [Proair Respiclick] 1 puff IH Q4H PRN 08/09/17 [History] Albuterol/Ipratropium [DuoNeb 3.0-0.5 MG/3 ML] 3 ml IH QID 08/09/17 [History] Baclofen 10 mg PO TID 08/09/17 [History] Cholecalciferol (Vitamin D3) [Vitamin D3] 400 unit PO DAILY 08/09/17 [History] ClonazePAM [KlonoPIN] 0.25 mg PO BID PRN 08/09/17 [History] Clopidogrel Bisulfate [Clopidogrel] 75 mg PO DAILY 08/09/17 [History] DULoxetine [Cymbalta] 20 mg PO BID 08/09/17 [History] Estradiol 0.5 mg PO DAILY 08/09/17 [History] Gabapentin [Neurontin] 300 mg PO TID 08/09/17 [History] Isosorbide Mononitrate [Imdur] 30 mg PO DAILY 08/09/17 [History] Levothyroxine 175 mcg PO DAILY 08/09/17 [History] Lisinopril/Hydrochlorothiazide [Lisinopril-Hctz 20-25 mg Tab] 1 tab PO DAILY 10/21 [History] Magnesium Oxide 400 mg PO DAILY 08/09/17 [History] Meloxicam 15 mg PO DAILY 08/09/17 [History] Metoprolol Tartrate 50 mg PO BID 08/09/17 [History] Multivitamin with Iron [Multivitamins with Iron] 1 tab PO DAILY 08/09/17 [ History] Naphazo HCl/HPM/PS 80/Zn Sulf [Clear Eyes Complete Eye Drops] 1 drop EYEBOTH TID PRN 08/09/17 [History] amLODIPine Besylate [Amlodipine Besylate] 5 mg PO DAILY 08/09/17 [History] atorvaSTATin Calcium [Atorvastatin Calcium] 80 mg PO DAILY 08/09/17 [History] medroxyPROGESTERone [Provera] 2.5 mg PO DAILY 08/09/17 [History] Acetaminophen/HYDROcodone [[place] 325-5 MG] 1 tab PO Q4H PRN #30 tablet MDD 4 Tabs/24hours 08/12/17 [Rx] Acetaminophen/HYDROcodone [[place] 325-5 MG] 1 tab PO Q6H #50 tablet 08/12/17 [Rx] Ciprofloxacin HCl [Cipro] 500 mg PO BID #1 tablet 08/12/17 [Rx] Cyanocobalamin (Vitamin B12) [Vitamin B12] 1,000 mcg PO DAILY #90 tablet [Rx] Docusate Sodium [Colace] 100 mg PO BID #60 cap 08/12/17 [Rx] Fluticasone/Salmeterol [Fluticasone-Salmeterol 232-14] 1 puff IH BID #1 aer.pow.ba 08/12/17 [Rx] Nicotine [Nicotine Patch] 1 patch TD DAILY #30 patch.td24 08/12/17 [Rx] Zolpidem [Ambien] 5 mg PO BEDTIME PRN #10 tablet 08/12/17 [Rx] Past Medical History HEENT History: Reports: Cataract Other HEENT History: glasses Cardiovascular History: Reports: CAD, High Cholesterol, Hypertension, PVD, Stents Respiratory History: Reports: Asthma, COPD Gastrointestinal History: Reports: Other (See Below) Genitourinary History: Reports: None 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 chronic pain Psychiatric History: Reports: Anxiety, Depression, Emotional Problems Endocrine/Metabolic History: Reports: None - Infectious Disease History Infectious Disease History: Reports: Chicken Pox - Past Surgical History Cardiovascular Surgical History: Reports: Vascular Surgery Female Surgical History: Reports: Section, Hysterectomy Social & Family History - Family History Family Medical History: Noncontributory - Tobacco Use Smoking Status *Q: Current Every Day Smoker Years of Tobacco use: 20 Packs/Tins Daily: 20 Used Tobacco, but Quit: No Second Hand Smoke Exposure: No - Caffeine Use Caffeine Use: Reports: Coffee, Soda - Recreational Drug Use Recreational Drug Use: No Review of Systems - Review of Systems Review Of Systems: See Below Constitutional: Reports: No Symptoms Eyes: Reports: No Symptoms Ears: Reports: No Symptoms Nose: Reports: No Symptoms Mouth/Throat: Reports: No Symptoms Respiratory: Reports: No Symptoms Cardiovascular: Reports: No Symptoms GI/Abdominal: Reports: No Symptoms Genitourinary: Reports: No Symptoms Musculoskeletal: Reports: Other (right hip pain) Skin: Reports: No Symptoms Neurological: Reports: No Symptoms Psychiatric: Reports: No Symptoms ED EXAM, GENERAL - Physical Exam Exam: See Below Exam Limited By: No Limitations General Appearance: Alert, WD/WN, Anxious Back Exam: Normal Inspection, Full Range of Motion, NT Extremities: Non-Tender, No Pedal Edema, Other (no PT at R hip, sitting in w/c, no pain with limited ROM) Course - Vital Signs Last Recorded V/S: Last Vital Signs Temp 36.4 C 09/09/17 03:05 Pulse 77 09/09/17 03:05 Resp 16 09/09/17 03:05 BP 106/70 09/09/17 03:05 Pulse Ox 99 09/09/17 03:05 Departure - Departure Time of Disposition: 03:21 Disposition: Home, Self-Care 01 Condition: Good Clinical Impression: Osteoarthritis of right hip - Discharge Information Instructions: Osteoarthritis Referrals: Shahida Davila BENCH MOLDER [Primary Care Provider] - Additional Instructions: Take acetaminophen 325 mg 2 tabs 4 times a day. May take one (but not two) acetaminophen with codeine at the same time as needed , up to 4 times a day. Use heat for 10 minutes every several hours as needed. See your PCP in 2-3 days.
== END 2017-09-09 03:35 | disposition home or self-care (01) ==
LOC: FB.ED 02:53
DX: M16.11 Unilateral primary osteoarthritis, right hip (principal); F17.210 Nicotine dependence, cigarettes, uncomplicated; I10 Essential (primary) hypertension; E78.00 Pure hypercholesterolemia, unspecified; J44.9 Chronic obstructive pulmonary disease, unspecified; Z79.899 Other long term (current) drug therapy; F41.9 Anxiety disorder, unspecified; F32.9 Major depressive disorder, single episode, unspecified
CPT/HCPCS: 96372; 99283; J1885

== ENCOUNTER 2018-08-08 06:38 | Day surgery (SDC) | payer MEDICARE, MEDICAID ==
[2018-08-08] MEDS ORDERED: Midazolam 1 MG/ML 2 ML SDV IV ONE (06:39)
[2018-08-08] MEDS ORDERED: fentaNYL 100 MCG/2 ML SDV IV ONE (06:39)
[2018-08-08] MEDS ORDERED: Propofol 200 MG/20 ML SDV IV ONE (06:39)
[2018-08-08] MEDS ORDERED: Sodium Chloride 0.9% 10 ML Syringe FLUSH PRN (06:45)
[2018-08-08] MEDS ORDERED: Lactated Ringers 1,000 ML IV SCH (06:45)
--- NOTE | 2018-08-08 08:21 | PCM.HP ---
H&P History of Present Illness - General Date of Service: 08/08/18 Admit Problem/Dx: Admission Diagnosis/Problem Admission Diagnosis/Problem Fracture of phalanx of finger of left hand Source of Information: Patient History Limitations: Reports: No Limitations - History of Present Illness Onset of Symptoms: Reports: Sudden Symptom Onset Date: 08/07/18 Duration of Symptoms: Reports: Day(s): Location: Reports: Upper Extremity, Left Quality: Reports: Stabbing, Throbbing Severity: Moderate Improves with: Reports: Immobilization Worsens with: Reports: Movement Left Upper Finger-Little Pain Score (Numeric/FACES): 5 - Related Data Allergies/Adverse Reactions: Allergies Allergy/AdvReac Type Severity Reaction Status Date / Time codeine Allergy Hives Verified 08/08/18 07:11 minerals [From Enviro Stress] Allergy Other Verified 08/08/18 07:11 pollen extracts Allergy Other Verified 08/08/18 07:11 vitamin B complex and C Allergy Other Verified 08/08/18 07:11 [From Enviro Stress] vitamin E (d-alpha Allergy Other Verified 08/08/18 07:11 tocopherol) [From Enviro Stress] CATS Allergy Other Uncoded 08/07/18 15:16 Home Medications: Home Meds Albuterol/Ipratropium [DuoNeb 3.0-0.5 MG/3 ML] 3 ml IH Q6H PRN 08/09/17 [History ] ClonazePAM [KlonoPIN] 0.25 mg PO BID PRN 08/09/17 [History] Clopidogrel Bisulfate [Clopidogrel] 75 mg PO DAILY 08/09/17 [History] DULoxetine [Cymbalta] 30 mg PO DAILY 08/09/17 [History] Estradiol 0.5 mg PO DAILY 08/09/17 [History] Gabapentin [Neurontin] 400 mg PO TID 08/09/17 [History] Isosorbide Mononitrate [Imdur] 30 mg PO DAILY 08/09/17 [History] Levothyroxine 175 mcg PO DAILY 08/09/17 [History] Meloxicam 15 mg PO DAILY 08/09/17 [History] amLODIPine Besylate [Amlodipine Besylate] 5 mg PO DAILY 08/09/17 [History] atorvaSTATin Calcium [Atorvastatin Calcium] 80 mg PO DAILY 08/09/17 [History] medroxyPROGESTERone [Provera] 2.5 mg PO DAILY 08/09/17 [History] Budesonide [Budesonide EC] 6 mg PO DAILY 04/04/18 [History] Cyanocobalamin (Vitamin B-12) [Vitamin B-12] 1,000 mcg PO DAILY 04/04/18 [ History] Fluticasone/Salmeterol [Fluticasone-Salmeterol 232-14 MCG Powder Inha] 1 puff INH BID 04/04/18 [History] Metoprolol Tartrate 50 mg PO BID 04/04/18 [History] Nicotine [Nicotine Patch] 21 mg TD DAILY 04/04/18 [History] Nitroglycerin 0.4 mg SL Q5M 04/04/18 [History] Zolpidem Tartrate 5 mg PO BEDTIME PRN 04/04/18 [History] Acetaminophen with Codeine [Tylenol with Codeine #3 Tablet] 1 each PO ASDIRECTED 08/07/18 [History] Albuterol Sulfate [Albuterol Sulfate Hfa] 1 - 2 puff IH ASDIRECTED PRN 08/07/18 [History] Magnesium Chloride [Mag-64] 128 mg PO DAILY 08/07/18 [History] Methocarbamol [Robaxin] 500 mg PO TID PRN 08/07/18 [History] Multivitamin [Multivitamins] 1 each PO DAILY 08/07/18 [History] Omeprazole 40 mg PO ACBREAKFAST 08/07/18 [History] PARoxetine [Paxil] 10 mg PO DAILY 08/07/18 [History] Past Medical History HEENT History: Reports: Cataract Other HEENT History: glasses Cardiovascular History: Reports: CAD, High Cholesterol, Hypertension, PVD, Stents Respiratory History: Reports: Asthma, COPD Gastrointestinal History: Reports: Other (See Below) Genitourinary History: Reports: None 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 chronic pain Psychiatric History: Reports: Anxiety, Depression, Emotional Problems Endocrine/Metabolic History: Reports: None - Infectious Disease History Infectious Disease History: Reports: Chicken Pox - Past Surgical History Cardiovascular Surgical History: Reports: Vascular Surgery GI Surgical History: Reports: Appendectomy Female Surgical History: Reports: Section, Hysterectomy Social & Family History - Family History Family Medical History: Noncontributory - Tobacco Use Smoking Status *Q: Current Every Day Smoker Years of Tobacco use: 30 Used Tobacco, but Quit: No - Caffeine Use Caffeine Use: Reports: Coffee - Recreational Drug Use Recreational Drug Use: No Drug Use in Last 12 Months: No H&P Review of Systems - Review of Systems: Review Of Systems: See Below General: Reports: No Symptoms HEENT: Reports: No Symptoms Pulmonary: Reports: No Symptoms Cardiovascular: Reports: No Symptoms Gastrointestinal: Reports: No Symptoms Genitourinary: Reports: No Symptoms Musculoskeletal: Reports: Hand Pain Skin: Reports: No Symptoms Psychiatric: Reports: No Symptoms Neurological: Reports: No Symptoms Hematologic/Lymphatic: Reports: No Symptoms Immunologic: Reports: No Symptoms Exam - Exam Exam: See Below - Vital Signs Vital Signs: Last Vital Signs Temp 208.2 F H 08/08/18 07:10 Pulse 84 08/08/18 07:10 Resp 16 08/08/18 07:10 BP 127/91 H 08/08/18 07:10 Pulse Ox 97 08/08/18 07:10 Weight: 138 lb - Exam General: Alert, Oriented, Cooperative, Mild Distress HEENT: Hearing Intact, Mucosa Moist & [place], Pupils Equal, Pupils Reactive Neck: Supple, Trachea Midline Lungs: Normal Respiratory Effort Cardiovascular: Regular Rate, Regular Rhythm, Normal S1, Normal S2 GI/Abdominal Exam: Normal Bowel Sounds, No Distention Extremities: Joint Swelling Peripheral Pulses: 2+: Radial (L) Skin: Warm, Dry, Intact, Ecchymosis Neuro Extensive - Mental Status: Alert, Oriented x3, Normal Mood/Affect, Normal Cognition Psychiatric: Alert, Normal Affect, Normal Mood - Patient Data Lab Results Last 24 hrs: Laboratory Results - last 24 hr 08/08/18 Range/Units 07:05 WBC 8.1 (4.5-12.0) X10-3/uL RBC 3.97 (3.23-5.20) x10(6)uL Hgb 13.5 (11.5-15.5) g/dL Hct 40.2 (30.0-51.3) % MCV 101.3 H (80-96) fL MCH 34.0 H (27.7-33.6) pg MCHC 33.6 (32.2-35.4) g/dL RDW 12.6 (11.5-15.5) % Plt Count 279 (125-369) X10(3)uL MPV 8.1 (7.4-10.4) fL Neut % (Auto) 44.2 L (46-82) % Lymph % (Auto) 43.0 H (13-37) % [place] % (Auto) 10.3 (4-12) % Eos % (Auto) 2 (1.0-5.0) % Baso % (Auto) 1 (0-2) % Neut # (Auto) 3.6 (1.6-8.3) # Lymph # (Auto) 3.5 (0.6-5.0) # [place] # (Auto) 0.8 (0.0-1.3) # Eos # (Auto) 0.1 (0.0-0.8) # Baso # (Auto) 0.1 (0.0-0.2) # Result Diagrams: 08/08/18 07:05 - Problem List (1) Phalanx, proximal fracture of finger SNOMED Code(s): 309457378 ICD Code: S62.619A - DISP FX OF PROXIMAL PHALANX OF UNSP FINGER, INIT FOR CLOS FX Status: Acute Current Visit: Yes Qualifiers: Encounter type: initial encounter Finger: little finger Fracture type: closed Fracture alignment: nondisplaced Laterality: left Qualified Code(s) : S62.647A - Nondisplaced fracture of proximal phalanx of left little finger, initial encounter for closed fracture Problem List Initiated/Reviewed/Updated: Yes Orders Last 24hrs: Active Orders 24 hr Category Date Time Status Patient Status [ADT] Routine ADT 08/08/18 06:45 Ordered EKG Documentation Completion [RC] ASDIRECTED Care 08/08/18 06:45 Active Patient to Empty Bladder [RC] ASDIRECTED Care 08/08/18 06:45 Active RT Incentive Spirometry [RC] ASDIRECTED Care 08/08/18 06:45 Active Verify Patient Consent Obtain [RC] ASDIRECTED Care 08/08/18 06:45 Active Nothing Per Oral Diet [DIET] Diet 08/07/18 Dinner Ordered Lactated Ringers [Ringers, Lactated] 1,000 ml Med 08/08/18 06:45 Active IV ASDIRECTED Sodium Chloride 0.9% [Saline Flush] Med 08/08/18 06:45 Active 10 ml FLUSH ASDIRECTED PRN Peripheral IV Insertion Adult [OM.PC] Routine Oth 08/08/18 06:45 Ordered Sequential Compression Device [OM.PC] Routine Oth 08/08/18 06:45 Ordered Resuscitation Status Routine Resus Stat 08/07/18 15:36 Ordered EKG 12 Lead [EK] Stat Ther 08/08/18 06:45 Ordered Medication Orders Lactated Ringer's (Ringers, Lactated) 1,000 mls @ 125 mls/hr IV ASDIRECTED GUY Last Admin: 08/08/18 07:52 Dose: 125 mls/hr Sodium Chloride (Saline Flush) 10 ml FLUSH ASDIRECTED PRN PRN Reason: Keep Vein Open
[2018-08-08] MEDS ORDERED: Bupivacaine 0.5% 30 ML SDV INJECT ONE (08:25)
--- NOTE | 2018-08-08 11:25 | CR ---
INDICATION: Closed reduction guidance. C-ARM FLUOROSCOPY IN OR, UP TO ONE HOUR: 0.2 minutes C-arm fluoroscopy time was utilized in OR during closed reduction of a left 5th finger fracture site. Image labeled series #1 showed adequate position and alignment. Image labeled series #3 showed evidence of lateral offset of the main fracture fragment of approximately 3 mm. There also appears to be some lateral angulation of the larger fracture fragment at the fracture site and slight distal shift of that larger fracture fragment of perhaps 1 mm. Images were obtained through a cast. [facility]
--- NOTE | 2018-08-08 13:23 | PCM.OPNOTE ---
- General Post-Op/Procedure Note Date of Surgery/Procedure: 08/08/18 Operative Procedure(s): closed reduction and casting left index p1 lateral condyle fracture Pre Op Diagnosis: left index p1 lateral condyle fracture, base, closed Post-Op Diagnosis: same Anesthesia Technique: MAC Primary Surgeon: Efrain Eisenberg Anesthesia Provider: Rosa Maria Hilton EBL in mLs: 0 Condition: Good
--- NOTE | 2018-08-11 13:38 | OR ---
DATE OF OPERATION: 08/08/2018 SURGEON: Efrain Eisenberg DO PREOPERATIVE DIAGNOSIS: Left little finger first phalanx lateral condyle fracture, proximal, closed. POSTOPERATIVE DIAGNOSIS: Left little finger first phalanx lateral condyle fracture, proximal, closed. PROCEDURE: Closed reduction and casting of P1 little finger. ANESTHESIA: MAC local. ESTIMATED BLOOD LOSS: Zero. COMPLICATIONS: None. SPECIMENS: None. DISCHARGE DISPOSITION: Stable to PACU. HISTORY AND INDICATIONS FOR THE PROCEDURE: The patient was seen this morning. I had received a call from her primary care provider, Shahida Davila NP. The patient fell and had significant swelling of her left hand. She was found to have the above-mentioned fracture on x-ray. Risks and benefits of the procedure were explained to the patient. Informed consent was obtained. DETAILS OF PROCEDURE: The patient was seen preoperatively by myself and the Anesthesia staff in the preop holding area, where the operative site was marked. She was brought to the operative suite by Anesthesia staff, where MAC local sedation was administered. Fluoroscopy was brought in, and the reduction was performed. Once it was felt to be in good alignment, a short-arm 4/5 spica cast was then applied. I then took final films. The patient was allowed to awaken from MAC local. I applied approximately 5 mL of 0.5% Marcaine without epinephrine along the 5th metacarpal of the left hand for local block. She was then allowed to awaken and then taken to the PACU in stable condition. /[id number] BS/INDU
== END 2018-08-08 10:10 | disposition home or self-care (01) ==
LOC: FB.SDS 06:38
PROVIDERS: ATTEND Orthopaedic Surgery
DX: S62.647A Nondisplaced fracture of proximal phalanx of left little finger, initial encounter for closed fracture (principal); I10 Essential (primary) hypertension; J44.9 Chronic obstructive pulmonary disease, unspecified; F17.200 Nicotine dependence, unspecified, uncomplicated; E78.00 Pure hypercholesterolemia, unspecified; F41.9 Anxiety disorder, unspecified; F32.9 Major depressive disorder, single episode, unspecified; Z79.899 Other long term (current) drug therapy; Z88.5 Allergy status to narcotic agent; Z88.8 Allergy status to other drugs, medicaments and biological substances
CPT/HCPCS: 26725; 36415; 76000; 85025; 93005; J2250; J2704; J3010; J3490; J7120; 01820-QZ

== ENCOUNTER 2018-09-07 16:45 | Emergency (ER) | payer MEDICARE, MEDICAID ==
--- NOTE | 2018-09-07 16:49 | EDM.PDOC ---
ED HPI GENERAL MEDICAL PROBLEM - General Stated Complaint: SICK Time Seen by Provider: 09/07/18 16:45 Source of Information: Reports: Patient, EMS History Limitations: Reports: Altered Mental Status, Respiratory Distress - History of Present Illness INITIAL COMMENTS - FREE TEXT/NARRATIVE: 52 y.o.w.f with a H/O ETOH and Drug abuse, chronic low back pain due to an injury as a child, was found down at her home. For how long(?). She was brought to the ED by EMS and received 1 mg Narcan [employer]. On arrival, pt was lethargic with an GCS was 13, opens eye to pain only, then follows commands and answers questions appropriate. She does not remember passing out. Her last ETOH was this morning, she on Percocet given by her PA for chronic low back pain. Pt falls a sleep during the conversation. Pt denies pain but has ecchymosis all over her integument. No family is present. Her daughter was here but does not talk to her mom because of her ETOH abuse. BP 124/105 RR 20 Pulse ox 87% on RA Temp 36.4 Pulse 58 Onset Date: 09/07/18 Onset Time: 15:00 Duration: Hour(s): Location: Reports: Chest, Generalized Quality: Reports: Other (lethargig) Improves with: Reports: Medication Worsens with: Reports: Other (sup) Context: Reports: Other (passed out in front of her home) Associated Symptoms: Reports: Cough, Shortness of Breath, Weakness - Related Data Allergies Allergy/AdvReac Type Severity Reaction Status Date / Time pollen extracts Allergy Other Verified 09/07/18 18:45 CATS Allergy Other Uncoded 09/07/18 18:45 Home Meds: Home Meds Albuterol/Ipratropium [DuoNeb 3.0-0.5 MG/3 ML] 3 ml IH Q6H PRN 08/09/17 [History ] ClonazePAM [KlonoPIN] 0.25 mg PO BID PRN 08/09/17 [History] Clopidogrel Bisulfate [Clopidogrel] 75 mg PO DAILY 08/09/17 [History] DULoxetine [Cymbalta] 30 mg PO BID 08/09/17 [History] Estradiol 0.5 mg PO DAILY 08/09/17 [History] Gabapentin [Neurontin] 400 mg PO TID 08/09/17 [History] Isosorbide Mononitrate [Imdur] 30 mg PO DAILY 08/09/17 [History] Meloxicam 15 mg PO DAILY 08/09/17 [History] atorvaSTATin Calcium [Atorvastatin Calcium] 80 mg PO DAILY 08/09/17 [History] medroxyPROGESTERone [Provera] 2.5 mg PO DAILY 08/09/17 [History] Cyanocobalamin (Vitamin B-12) [Vitamin B-12] 1,000 mcg PO DAILY 04/04/18 [ History] Fluticasone/Salmeterol [Fluticasone-Salmeterol 232-14 MCG Powder Inha] 2 puff INH BID 04/04/18 [History] Nicotine [Nicotine Patch] 21 mg TD DAILY PRN 04/04/18 [History] Nitroglycerin 0.4 mg SL Q5M PRN 04/04/18 [History] Acetaminophen with Codeine [Tylenol with Codeine #3 Tablet] 1 each PO DAILY 08/22 [History] Albuterol Sulfate [Albuterol Sulfate Hfa] 1 - 2 puff IH ASDIRECTED PRN 08/07/18 [History] Magnesium Chloride [Mag-64] 64 mg PO BID 08/07/18 [History] Methocarbamol [Robaxin] 500 mg PO TID PRN 08/07/18 [History] Multivitamin [Multivitamins] 1 each PO DAILY 08/07/18 [History] Omeprazole 40 mg PO ACBREAKFAST 08/07/18 [History] PARoxetine [Paxil] 20 mg PO DAILY 08/07/18 [History] Amiodarone [Cordarone] 200 mg PO DAILY 09/07/18 [History] Furosemide 20 mg DAILY 09/07/18 [History] Levothyroxine 200 mcg PO DAILY 09/07/18 [History] Metoprolol Succinate [Toprol XL 100mg] 100 mg PO BID 09/07/18 [History] Potassium Chloride 10 meq PO DAILY 09/07/18 [History] Spironolactone [Aldactone] 25 mg DAILY 09/07/18 [History] traZODone 100 mg PO BEDTIME PRN 09/07/18 [History] Past Medical History HEENT History: Reports: Cataract Other HEENT History: glasses Cardiovascular History: Reports: CAD, High Cholesterol, Hypertension, PVD, Stents Respiratory History: Reports: Asthma, COPD Gastrointestinal History: Reports: Other (See Below) Genitourinary History: Reports: None COLLAR SEPARATOR History: Reports: Other COLLAR SEPARATOR History: Musculoskeletal History: Reports: Other (See Below) Other Musculoskeletal History: patient is here for right hip pain. chronic pain Psychiatric History: Reports: Anxiety, Depression, Emotional Problems Endocrine/Metabolic History: Reports: None - Infectious Disease History Infectious Disease History: Reports: Chicken Pox - Past Surgical History Cardiovascular Surgical History: Reports: Vascular Surgery GI Surgical History: Reports: Appendectomy Female Surgical History: Reports: Section, Hysterectomy Social & Family History - Family History Family Medical History: Noncontributory - Caffeine Use Caffeine Use: Reports: Coffee ED ROS GENERAL - Review of Systems Review Of Systems: Unable To Obtain (pt is a poor historian, no family is present) - Physical Exam Exam: See Below Exam Limited By: Physical Impairment General Appearance: Alert, WD/WN, Lethargic (GCS 13, opens here eye to pain only , follow commands), Moderate Distress, Obese Eye Exam: Bilateral Eye: Nystagmus (to the left) Ears: Normal External Exam Nose: Normal Inspection Throat/Mouth: Normal Lips, Normal Voice, No Airway Compromise Head Exam: Atraumatic, Normocephalic Neck: Normal Inspection, Supple, Non-Tender, Full Range of Motion Respiratory/Chest: Respiratory Distress, Wheezing Cardiovascular: Normal Peripheral Pulses, No JVD, Bradycardia GI/Abdominal: Normal Bowel Sounds (Female) Exam: Deferred Rectal (Female) Exam: Deferred Neuro Exam (Abbreviated): CN II-XII Intact, Other (GCS 13, opens eye to pain only, then follows commands and answers questions. ) Back Exam: Normal Inspection, Full Range of Motion Extremities: Normal Range of Motion, Normal Capillary Refill, Other (ecchymosis upper anl owere extremities) Psychiatric: Depressed Mood Skin Exam: Cool (fingers), Ecchymosis (lower extremities, abdominal wall, back upper extremities) EKG INTERPRETATION EKG Date: 09/07/18 Time: 17:10 Rhythm: NSR Rate (Beats/Min): 53 [place]: Normal P-Wave: Present QRS: Normal ST-T: Normal QT: Prolonged Comparison: NA - No Prior EKG (NM 210 QTc 520) Course - Vital Signs Text/Narrative:: 52 y.o.w.f with a H/O ETOH and Drug abuse, chronic low back pain due to an injury as a child, was found down at her home. For how long(?). She was brought to the ED by EMS and received 1 mg Narcan [employer]. On arrival, pt was lethargic with an GCS was 13, opens eye to pain only, then follows commands and answers questions appropriate. She does not remember passing out. Her last ETOH was this morning, she on Percocet given by her PA for chronic low back pain. Pt falls a sleep during the conversation. Pt denies pain but has ecchymosis all over her integument. No family is present. Her daughter was here but does not talk to her mom because of her ETOH abuse. BP 124/105 RR 20 Pulse ox 87% on RA Temp 36.4 Pulse 58 PE: Lethargic 52 y.o.w.f lethargic with a GCS of 13 and ecchymosis throughout Imaging: CXR 1 view: Enlarged heart silhouette, official report is pending. Elvira CT chest not done because of her Renal Insuff. May need VQ study. Labs: ETOH < 0.03 UDS pos for opioids, Na 132 K 4.2 Cr 1.8 PRABHU 34 GFR 30 BNP 3367 TSH 15.04 Troponin 0.140 D Dimer 1.24 Impression: Urine drug screen positive for opioids with decreased RR, Syncope, NSTEMI. H/O ETOH abuse, Hypothyroidism, chronic low back pain. Ecchymosis scattered throughout, Chronic low back pain, elevated Troponin level, acute Renal insufficiency, hyponatremia. Hypoxemia, Elevated D Dimer Tx: NS, Duoneb, Albuterol neb, Narcan, O2 by ND, Levine cath. Levothyroxine 200 mg, Heparin Drip (no bolus) Reexam: Stable, with improvement. Pt received 4 doses of Narcan RR was 10 before the last dose of Narcan, before transfer to [facility]. 10.40 pm: Consultation: Dr. Rm, Hospitalist, [facility]: Accepted the pt for transfer and further care. Pt was seen in August at [facility] Plan: Transfer pt to [facility] Room 347 by EMS Last Recorded V/S: Last Vital Signs Temp 36.3 C 09/07/18 16:45 Pulse 52 L 09/08/18 02:58 Resp 17 09/07/18 18:45 BP 131/86 09/08/18 02:58 Pulse Ox 95 09/07/18 18:45 - Orders/Labs/Meds Orders: Active Orders 24 hr Category Date Time Status EKG Documentation Completion [RC] ASDIRECTED Care 09/07/18 16:48 Active EKG Documentation Completion [RC] ASDIRECTED Care 09/07/18 21:18 Active Levine Catheter Insertion [Insert Urinary Catheter] [OM. Care 09/07/18 21:15 Ordered PC] Q24H Oxygen Therapy Adult [Oxygen Therapy, ED] [RC] Care 09/07/18 16:50 Active ASDIRECTED RT Aerosol Therapy [RC] ASDIRECTED Care 09/07/18 19:30 Active RT Aerosol Therapy [RC] ASDIRECTED Care 09/07/18 20:18 Active Urinary Catheter Assessment [RC] QSHIFT Care 09/07/18 21:07 Active CXR [Chest 1V Frontal] [CR] Stat Exams 09/07/18 19:33 Taken EKG 12 Lead [EK] Routine Ther 09/07/18 16:48 Ordered EKG 12 Lead [EK] Routine Ther 09/07/18 21:18 Ordered Labs: Laboratory Tests 09/07/18 09/07/18 09/07/18 Range/Units 16:55 16:55 16:55 WBC 9.4 (4.5-12.0) X10-3/uL RBC 3.30 (3.23-5.20) x10(6)uL Hgb 11.5 (11.5-15.5) g/dL Hct 34.7 (30.0-51.3) % MCV 105.3 H (80-96) fL MCH 34.8 H (27.7-33.6) pg MCHC 33.1 (32.2-35.4) g/dL RDW 12.7 (11.5-15.5) % Plt Count 226 (125-369) X10(3)uL MPV 9.4 (7.4-10.4) fL Neut % (Auto) 71.4 (46-82) % Lymph % (Auto) 18.6 (13-37) % [place] % (Auto) 8.7 (4-12) % Eos % (Auto) 1 (1.0-5.0) % Baso % (Auto) 0 (0-2) % Neut # (Auto) 6.8 (1.6-8.3) # Lymph # (Auto) 1.7 (0.6-5.0) # [place] # (Auto) 0.8 (0.0-1.3) # Eos # (Auto) 0.1 (0.0-0.8) # Baso # (Auto) 0.0 (0.0-0.2) # PT (8.7-11.1) INR (0.89-1.13) D-Dimer, Quantitative (0.0-0.59) mg/LFEU Sodium 132 L (135-145) mmol/L Potassium 5.2 (3.5-5.3) mmol/L Chloride 98 L (100-110) mmol/L Carbon Dioxide 23 (21-32) mmol/L BUN 34 H D (7-18) mg/dL Creatinine 1.8 H (0.55-1.02) mg/dL Est Cr Clr Drug Dosing TNP Estimated GFR (MDRD) 30 L (>60) BUN/Creatinine Ratio 18.9 (9-20) Glucose 104 (80-116) mg/dL Lactic Acid (0.4-2.2) mmol/L Calcium 8.8 (8.6-10.2) mg/dL Magnesium (1.8-2.5) mg/dL Troponin I (<0.017-0.056) ng/mL NT-Pro-B Natriuret Pep (<=125) pg/mL TSH, Ultra Sensitive 15.04 H* (0.36-3.74) IU/mL Urine Opiates Screen (NEGATIVE) Ur Oxycodone Screen (NEGATIVE) Ur Propoxyphene Screen (NEGATIVE) Ur Barbituates Screen (NEGATIVE) Ur Tricyclics Screen (NEGATIVE) Ur Phencyclidine Scrn (NEGATIVE) Ur Amphetamine Screen (NEGATIVE) Urine MDMA Screen (NEGATIVE) U Benzodiazepines Scrn (NEGATIVE) U Cocaine Metab Screen (NEGATIVE) U Marijuana (THC) Screen (NEGATIVE) Ethyl Alcohol < 0.03 (<0.03) % 09/07/18 09/07/18 09/07/18 Range/Units 16:55 16:55 16:55 WBC (4.5-12.0) X10-3/uL RBC (3.23-5.20) x10(6)uL Hgb (11.5-15.5) g/dL Hct (30.0-51.3) % MCV (80-96) fL MCH (27.7-33.6) pg MCHC (32.2-35.4) g/dL RDW (11.5-15.5) % Plt Count (125-369) X10(3)uL MPV (7.4-10.4) fL Neut % (Auto) (46-82) % Lymph % (Auto) (13-37) % [place] % (Auto) (4-12) % Eos % (Auto) (1.0-5.0) % Baso % (Auto) (0-2) % Neut # (Auto) (1.6-8.3) # Lymph # (Auto) (0.6-5.0) # [place] # (Auto) (0.0-1.3) # Eos # (Auto) (0.0-0.8) # Baso # (Auto) (0.0-0.2) # PT (8.7-11.1) INR (0.89-1.13) D-Dimer, Quantitative (0.0-0.59) mg/LFEU Sodium (135-145) mmol/L Potassium (3.5-5.3) mmol/L Chloride (100-110) mmol/L Carbon Dioxide (21-32) mmol/L BUN (7-18) mg/dL Creatinine (0.55-1.02) mg/dL Est Cr Clr Drug Dosing Estimated GFR (MDRD) (>60) BUN/Creatinine Ratio (9-20) Glucose (80-116) mg/dL Lactic Acid 1.0 (0.4-2.2) mmol/L Calcium (8.6-10.2) mg/dL Magnesium 2.4 (1.8-2.5) mg/dL Troponin I 0.140 H* (<0.017-0.056) ng/mL NT-Pro-B Natriuret Pep (<=125) pg/mL TSH, Ultra Sensitive (0.36-3.74) IU/mL Urine Opiates Screen (NEGATIVE) Ur Oxycodone Screen (NEGATIVE) Ur Propoxyphene Screen (NEGATIVE) Ur Barbituates Screen (NEGATIVE) Ur Tricyclics Screen (NEGATIVE) Ur Phencyclidine Scrn (NEGATIVE) Ur Amphetamine Screen (NEGATIVE) Urine MDMA Screen (NEGATIVE) U Benzodiazepines Scrn (NEGATIVE) U Cocaine Metab Screen (NEGATIVE) U Marijuana (THC) Screen (NEGATIVE) Ethyl Alcohol (<0.03) % 09/07/18 09/07/18 09/07/18 Range/Units 16:55 16:55 16:55 WBC (4.5-12.0) X10-3/uL RBC (3.23-5.20) x10(6)uL Hgb (11.5-15.5) g/dL Hct (30.0-51.3) % MCV (80-96) fL MCH (27.7-33.6) pg MCHC (32.2-35.4) g/dL RDW (11.5-15.5) % Plt Count (125-369) X10(3)uL MPV (7.4-10.4) fL Neut % (Auto) (46-82) % Lymph % (Auto) (13-37) % [place] % (Auto) (4-12) % Eos % (Auto) (1.0-5.0) % Baso % (Auto) (0-2) % Neut # (Auto) (1.6-8.3) # Lymph # (Auto) (0.6-5.0) # [place] # (Auto) (0.0-1.3) # Eos # (Auto) (0.0-0.8) # Baso # (Auto) (0.0-0.2) # PT 9.6 (8.7-11.1) INR 0.99 (0.89-1.13) D-Dimer, Quantitative 1.28 H (0.0-0.59) mg/LFEU Sodium (135-145) mmol/L Potassium (3.5-5.3) mmol/L Chloride (100-110) mmol/L Carbon Dioxide (21-32) mmol/L BUN (7-18) mg/dL Creatinine (0.55-1.02) mg/dL Est Cr Clr Drug Dosing Estimated GFR (MDRD) (>60) BUN/Creatinine Ratio (9-20) Glucose (80-116) mg/dL Lactic Acid (0.4-2.2) mmol/L Calcium (8.6-10.2) mg/dL Magnesium (1.8-2.5) mg/dL Troponin I (<0.017-0.056) ng/mL NT-Pro-B Natriuret Pep 3367 H* (<=125) pg/mL TSH, Ultra Sensitive (0.36-3.74) IU/mL Urine Opiates Screen (NEGATIVE) Ur Oxycodone Screen (NEGATIVE) Ur Propoxyphene Screen (NEGATIVE) Ur Barbituates Screen (NEGATIVE) Ur Tricyclics Screen (NEGATIVE) Ur Phencyclidine Scrn (NEGATIVE) Ur Amphetamine Screen (NEGATIVE) Urine MDMA Screen (NEGATIVE) U Benzodiazepines Scrn (NEGATIVE) U Cocaine Metab Screen (NEGATIVE) U Marijuana (THC) Screen (NEGATIVE) Ethyl Alcohol (<0.03) % 09/07/18 09/07/18 Range/Units 17:42 22:15 WBC (4.5-12.0) X10-3/uL RBC (3.23-5.20) x10(6)uL Hgb (11.5-15.5) g/dL Hct (30.0-51.3) % MCV (80-96) fL MCH (27.7-33.6) pg MCHC (32.2-35.4) g/dL RDW (11.5-15.5) % Plt Count (125-369) X10(3)uL MPV (7.4-10.4) fL Neut % (Auto) (46-82) % Lymph % (Auto) (13-37) % [place] % (Auto) (4-12) % Eos % (Auto) (1.0-5.0) % Baso % (Auto) (0-2) % Neut # (Auto) (1.6-8.3) # Lymph # (Auto) (0.6-5.0) # [place] # (Auto) (0.0-1.3) # Eos # (Auto) (0.0-0.8) # Baso # (Auto) (0.0-0.2) # PT (8.7-11.1) INR (0.89-1.13) D-Dimer, Quantitative (0.0-0.59) mg/LFEU Sodium (135-145) mmol/L Potassium (3.5-5.3) mmol/L Chloride (100-110) mmol/L Carbon Dioxide (21-32) mmol/L BUN (7-18) mg/dL Creatinine (0.55-1.02) mg/dL Est Cr Clr Drug Dosing Estimated GFR (MDRD) (>60) BUN/Creatinine Ratio (9-20) Glucose (80-116) mg/dL Lactic Acid (0.4-2.2) mmol/L Calcium (8.6-10.2) mg/dL Magnesium (1.8-2.5) mg/dL Troponin I 0.138 H* (<0.017-0.056) ng/mL NT-Pro-B Natriuret Pep (<=125) pg/mL TSH, Ultra Sensitive (0.36-3.74) IU/mL Urine Opiates Screen Positive H (NEGATIVE) Ur Oxycodone Screen Negative (NEGATIVE) Ur Propoxyphene Screen Negative (NEGATIVE) Ur Barbituates Screen Negative (NEGATIVE) Ur Tricyclics Screen Negative (NEGATIVE) Ur Phencyclidine Scrn Negative (NEGATIVE) Ur Amphetamine Screen Negative (NEGATIVE) Urine MDMA Screen Negative (NEGATIVE) U Benzodiazepines Scrn Negative (NEGATIVE) U Cocaine Metab Screen Negative (NEGATIVE) U Marijuana (THC) Screen Negative (NEGATIVE) Ethyl Alcohol (<0.03) % Meds: Medications Discontinued Medications Generic Name Dose Route Start Last Admin Trade Name Freq PRN Reason Stop Dose Admin Albuterol 2.5 mg 09/07/18 20:18 09/07/18 20:26 Proventil Neb Soln [facility] 09/07/18 20:19 2.5 mg ONETIME ONE Administration Albuterol/Ipratropium 3 ml 09/07/18 19:29 09/07/18 19:32 Duoneb 3.0-0.5 Mg/3 Ml NEB 09/07/18 19:30 3 ml ONETIME ONE Administration Furosemide 40 mg 09/07/18 19:33 09/07/18 21:17 Lasix IVPUSH 09/07/18 19:34 Not Given NOW STA Sodium Chloride 1,000 mls @ 999 mls/hr 09/07/18 18:15 09/07/18 17:20 Normal Saline IV 999 mls/hr .BOLUS GUY Administration Heparin Sodium/Sodium Chloride 25,000 units in 500 mls @ 16.22 mls/hr 23:00 Heparin 25,000 Units In 1/2 Ns 500 Ml IV TITRATE GUY Protocol 12 UNITS/KG/HR Heparin Sodium/Sodium Chloride 25,000 units in 500 mls @ 16.22 mls/hr 23:15 09/07/18 23:30 Heparin 25,000 Units In 1/2 Ns 500 Ml IV 12 units/kg/hr TITRATE GUY 16.22 mls/hr Administration Protocol 12 UNITS/KG/HR Levothyroxine Sodium 100 mcg 09/07/18 20:38 09/07/18 21:17 Synthroid IVPUSH 09/07/18 20:39 Not Given ONETIME ONE Levothyroxine Sodium 200 mcg 09/07/18 21:16 09/07/18 21:57 Levothyroxine PO 09/07/18 21:17 Not Given ONETIME STA Levothyroxine Sodium Confirm 09/07/18 21:51 09/07/18 21:55 Synthroid Administered 09/07/18 21:52 200 mcg Dose Administration 200 mcg .ROUTE .STK-MED ONE Naloxone HCl 0.1 mg 09/07/18 20:31 Narcan IVPUSH ONETIME PRN Oversedation Naloxone HCl Confirm 09/07/18 20:31 09/07/18 20:35 Narcan Administered 09/07/18 20:32 0.4 mg Dose Administration 0.4 mg .ROUTE .STK-MED ONE Naloxone HCl 0.4 mg 09/07/18 23:13 09/07/18 23:24 Narcan IVPUSH 09/07/18 23:14 0.4 mg ONETIME STA Administration Departure - Departure Time of Disposition: 21:00 Disposition: DC/Tfer to Acute Hospital 02 Condition: Fair Clinical Impression: Drug overdose - Discharge Information Referrals: Shahida Davila CONTROL DIRECTOR [Primary Care Provider] - Forms: ED Department Discharge - My Orders Last 24 Hours: My Active Orders 09/07/18 16:48 EKG Documentation Completion [RC] ASDIRECTED EKG 12 Lead [EK] Routine 09/07/18 16:50 Oxygen Therapy Adult [Oxygen Therapy, ED] [RC] ASDIRECTED 09/07/18 19:30 RT Aerosol Therapy [RC] ASDIRECTED 09/07/18 19:33 CXR [Chest 1V Frontal] [CR] Stat 09/07/18 20:18 RT Aerosol Therapy [RC] ASDIRECTED 09/07/18 21:07 Urinary Catheter Assessment [RC] QSHIFT 09/07/18 21:15 Levine Catheter Insertion [Insert Urinary Catheter] [OM.PC] Q24H 09/07/18 21:18 EKG Documentation Completion [RC] ASDIRECTED EKG 12 Lead [EK] Routine - Assessment/Plan Last 24 Hours: My Active Orders 09/07/18 16:48 EKG Documentation Completion [RC] ASDIRECTED EKG 12 Lead [EK] Routine 09/07/18 16:50 Oxygen Therapy Adult [Oxygen Therapy, ED] [RC] ASDIRECTED 09/07/18 19:30 RT Aerosol Therapy [RC] ASDIRECTED 09/07/18 19:33 CXR [Chest 1V Frontal] [CR] Stat 09/07/18 20:18 RT Aerosol Therapy [RC] ASDIRECTED 09/07/18 21:07 Urinary Catheter Assessment [RC] QSHIFT 09/07/18 21:15 Levine Catheter Insertion [Insert Urinary Catheter] [OM.PC] Q24H 09/07/18 21:18 EKG Documentation Completion [RC] ASDIRECTED EKG 12 Lead [EK] Routine
[2018-09-07] MEDS ORDERED: Sodium Chloride 0.9% 1,000 ML IV SCH (18:15)
[2018-09-07] MEDS ORDERED: Albuterol/Ipratropium 3.0-0.5 MG/3 ML Neb Soln NEB ONE (19:29)
[2018-09-07] MEDS ORDERED: Furosemide 40 MG/4 ML VIAL IVPUSH STA (19:33)
[2018-09-07] MEDS ORDERED: Albuterol 0.083% 2.5 MG/3 ML Neb Soln NEB ONE (20:18)
[2018-09-07] MEDS ORDERED: Naloxone 0.4 MG/ML SDV IVPUSH PRN (20:31)
[2018-09-07] MEDS ORDERED: Naloxone 0.4 MG/ML SDV ONE (20:31)
[2018-09-07] MEDS ORDERED: Levothyroxine 100 MCG Vial IVPUSH ONE (20:38)
[2018-09-07] MEDS ORDERED: Levothyroxine 100 MCG Tab ONE (21:51)
[2018-09-07] MEDS ORDERED: Heparin Sodium/0.45% NaCl 25,000 UNITS/500 ML BAG IV SCH ×2 (23:00→23:15)
[2018-09-07] MEDS ORDERED: Naloxone 0.4 MG/ML SDV IVPUSH STA (23:13)
== END 2018-09-07 23:50 ==
LOC: FB.ED 16:45
DX: T40.2X1A Poisoning by other opioids, accidental (unintentional), initial encounter (principal); M54.5 Low back pain; G89.29 Other chronic pain; I25.10 Atherosclerotic heart disease of native coronary artery without angina pectoris; E78.00 Pure hypercholesterolemia, unspecified; I10 Essential (primary) hypertension; Z95.5 Presence of coronary angioplasty implant and graft; J44.9 Chronic obstructive pulmonary disease, unspecified; F41.9 Anxiety disorder, unspecified; F32.9 Major depressive disorder, single episode, unspecified; R55 Syncope and collapse; I21.4 Non-ST elevation (NSTEMI) myocardial infarction; E03.9 Hypothyroidism, unspecified; Z79.899 Other long term (current) drug therapy
CPT/HCPCS: 36415; 51702; 71045; 80048; 80305; 83605; 83735; 83880; 84443; 84484; 85025; 85379; 85610; 93005; 94640; 96361; 96365; 96375; 96376; 99285; A9270; G0480; J1644; J2310; J7030; J7620-GY